=== PATIENT | female | born 1990 | race Caucasian/White ===

== ENCOUNTER → 2016-07-31 | Outpatient (CLI) | payer OTHER ==
[~2016-07-31] MED LIST: MTR600X PO; NITR-5 PO; ONDA4TAB10 SL; PEDICHW44; PEDICHW53 PO; VALA500T60 PO
== END | disposition home or self-care (01) ==
LOC: C.LAB 11:26
PROVIDERS: ATTEND Emergency Medicine
DX: A04.7 Enterocolitis due to Clostridium difficile (principal)

== ENCOUNTER 2016-10-15 17:41 | Outpatient (CLI) | payer OTHER ==
[~2016-10-15] VITALS: Ht 160 cm; Wt 82.7 kg
[~2016-10-15 17:41] MED LIST changes: -MTR600X PO; -NITR-5 PO; -PEDICHW44; -VALA500T60 PO
[2016-10-15] MEDS ORDERED: LACTATED RINGER'S 1000ML 1,000 ML IV SCH (18:15)
[2016-10-15] MEDS ORDERED: LACTATED RINGER'S 1000ML 500 ML IV ONE (18:15)
[2016-10-15 18:54] VITALS: Ht 160 cm; Wt 82.7 kg
--- NOTE | 2016-10-15 19:13 | DIAGNOSTIC IMAGING REPORT ---
Limited ultrasound LIMITED (US) CLINICAL HISTORY: please evaluate cervical length recurrent miscarriage TECHNIQUE: Ultrasound COMPARISON STUDY: None FINDINGS: Single, viable intrauterine . Gestational age is estimated at 19 weeks 4 days. Posterior placenta. Placenta is low-lying. position is variable. heart rate 1 44 bpm. Maternal cervix 6 cm. IMPRESSION: 1. Single, viable intrauterine .. 2. Low-lying posterior placenta 3. Maternal cervix 6 cm. Electronically signed by: Deo Garza M.D. 10/15/2016 7:12 PM Dictated Date/Time: 10/15/2016 7:11 PM
[2016-10-15 19:30] LABS: BASO % 0.3 %; BASO ABS # 0.03 K/uL (0-0.2); COMPLETE YES; EOS % 1.7 %; HEMATOCRIT 32.4 % (37-47); IG% 0.9 %; LYMPH % 26.9 %; LYMPH ABS # 3.09 K/uL (1.2-3.4); MEAN CELL VOLUME 90.8 fL (80-100); MEAN CORPUSCULAR HEMOGLOBIN 33.1 pg (25-34); MEAN CORPUSCULAR HGB CONC 36.4 g/dl (32-36); MEAN PLATELET VOLUME 9.4 fL (7.4-10.4); NEUT % 63.2 %; PLATELET COUNT 212 K/uL (130-400); RED BLOOD COUNT 3.57 M/uL (4.2-5.4); WHITE BLOOD COUNT 11.48 K/uL (4.8-10.8)
[2016-10-15 19:44] LABS: URINE APPEARANCE CLEAR (CLEAR); URINE BILIRUBIN NEG (NEG); URINE COLOR YELLOW; URINE EPITHELIAL CELL AUTO >30 /lpf (0-5); URINE NITRITE NEG (NEG); URINE SPECIFIC GRAVITY 1.015 (1.000-1.030); UROBILINOGEN NEG (NEG); ZZUR CULT IF INDIC CLEAN CATCH NO
[2016-10-15] MEDS ORDERED: IV FLUIDS COMPLETED PRN (19:45)
[2016-10-15 19:49] LABS: MANUAL MICROSCOPIC REQUIRED? NO; REVIEW REQ? NO
--- NOTE | 2016-10-15 20:13 | Progress Note ---
Progress Note Date of Service Oct 15, 2016. Progress Note h&P dictated
--- NOTE | 2016-10-15 20:15 | Discharge Instructions ---
Discharge Instructions Date of Service Oct 15, 2016. Admission Reason for Admission: Cramping Discharge Discharge Diagnosis / Problem: cramping at 19 weeks Discharge Goals Goal(s): Continuing OB care Activity Recommendations Activity Limitations: as noted below ACTIVITY RECOMMENDATIONS: See Labor Sheet. SPECIAL CARE INSTRUCTIONS: Call Doctor if: * Regular contractions every 5 minutes or greater than contractions in one hour. * Bleeding * Water breaks or is leaking * Decreased movement * Fever >100.4 degrees F * Pain not relieved by routine measures or pain medication ordered. FOLLOW UP VISIT: Return to Labor and Delivery on for /call for appointment time . Follow-up Visit with: When: . Current Hospital Diet Patient's current hospital diet: Discharge Diet Recommended Diet: Regular Diet Pending Studies Studies pending at discharge: no Medical Emergencies . Who to Call and When: Medical Emergencies: If at any time you feel your situation is an emergency, please call 911 immediately. . Non-Emergent Contact Non-Emergency issues call your: Specialist . . "Provider Documentation" section prepared by Song Van. VTE Core Measure Inpt VTE Proph given/why not?: Treatment not indicated
--- NOTE | 2016-10-15 20:53 | HISTORY & PHYSICAL EXAMINATION ---
DATE OF ADMISSION: 10/15/2016 HISTORY OF PRESENT ILLNESS: This is a 26-year-old G5, P1 at 19 weeks' gestation who presented to labor and delivery with complaints of abdominal cramping. She denies any nausea, vomiting, shortness of breath or bloody show. The patient has history of 4 miscarriages and obviously was very concerned. On arrival to labor and delivery, she was evaluated and sent for an ultrasound. Ultrasound showed cervical length of 6.0. No funneling is present. CBC and urine have all been normal. COURSE: Has been unremarkable. PAST MEDICAL HISTORY: History of diarrhea, gastroparesis and migraines. PAST SURGICAL HISTORY: History of tonsillectomy, nasal surgery as well as dental surgery. ALLERGIES: THE PATIENT IS ALLERGIC TO REGLAN. SOCIAL HISTORY: The patient is a smoker. Denies drug or alcohol use. FAMILY HISTORY: Noncontributory. OBSTETRICAL AND GYNECOLOGICAL HISTORY: The patient has had 3 spontaneous ABs as well as 1 full term vaginal delivery and spontaneous abortions were less than 10 weeks. PHYSICAL EXAMINATION: GENERAL: Well-developed, well-nourished white female in no acute distress. HEART: S1, S2, regular rhythm and rate. LUNGS: Clear to auscultation bilaterally. ABDOMEN: Nontender, nondistended. PELVIC: Done with a speculum, no digital exam was done because ultrasound showed low lying placenta. She, however, has denied any bleeding. EXTREMITIES: No cyanosis, clubbing or edema. ASSESSMENT AND PLAN: A 26-year-old G5, P1 at 19 weeks gestation, history of recurrent miscarriages, seen today for cramping. Ultrasound showed cervical length of 6.0 as well as low lying placenta. I have given the patient instructions about low lying placenta including but not limited to no intercourse, nothing by vagina. The patient knows to call if she has any vaginal bleeding. CBC, urine and an ultrasound have all been unremarkable. I have discussed my findings with patient and the patient was discharged home in stable condition. REINA
[2017-03-05] MEDS ORDERED: NITR-5 PO (14:10)
[2017-03-12] MEDS ORDERED: MTR600X PO (10:09)
== END 2016-10-15 20:30 | disposition home or self-care (01) ==
LOC: C.OPB 17:41 → C.LD 17:41 → C.OPB 20:30
PROVIDERS: ATTEND Obstetrics & Gynecology
DX: O99.89 Other specified diseases and conditions complicating pregnancy, childbirth and the puerperium (principal); R10.9 Unspecified abdominal pain; O99.332 Smoking (tobacco) complicating pregnancy, second trimester; F17.200 Nicotine dependence, unspecified, uncomplicated; Z3A.19 19 weeks gestation of pregnancy

== ENCOUNTER 2017-01-30 14:41 | Outpatient (CLI) | payer OTHER ==
[~2017-01-30] VITALS: Ht 160 cm; Wt 87.7 kg
[~2017-01-30 14:41] MED LIST changes: -ONDA4TAB10 SL
[2017-01-30 14:56] VITALS: Ht 160 cm; Wt 87.7 kg
[2017-01-30 16:19] LABS: URINE APPEARANCE CLEAR (CLEAR); URINE BILIRUBIN NEG (NEG); URINE COLOR DK YELLOW; URINE EPITHELIAL CELL AUTO >30 /lpf (0-5); URINE NITRITE NEG (NEG); URINE SPECIFIC GRAVITY 1.026 (1.000-1.030); UROBILINOGEN NEG (NEG); ZZUR CULT IF INDIC CLEAN CATCH NO
[2017-01-30 16:20] LABS: MANUAL MICROSCOPIC REQUIRED? NO; REVIEW REQ? NO
--- NOTE | 2017-01-30 16:51 | Progress Note ---
Progress Note Date of Service Jan 30, 2017. Progress Note 26yo @ 34 weeks seen for PTL FHr; CAT1 Ctx ; None VE; cl/thick/post oral hydration d/c home w/instructions
--- NOTE | 2017-01-30 16:53 | Discharge Instructions ---
Discharge Instructions Date of Service Jan 30, 2017. Admission Reason for Admission: Check Pre Term Labor Discharge Discharge Diagnosis / Problem: labor Discharge Goals Goal(s): Continuing OB care Activity Recommendations Activity Limitations: resume your previous activity ACTIVITY RECOMMENDATIONS: See Labor Sheet. SPECIAL CARE INSTRUCTIONS: Call Doctor if: * Regular contractions every 5 minutes or greater than contractions in one hour. * Bleeding * Water breaks or is leaking * Decreased movement * Fever >100.4 degrees F * Pain not relieved by routine measures or pain medication ordered. FOLLOW UP VISIT: Return to Labor and Delivery on for /call for appointment time . Follow-up Visit with: When: . Current Hospital Diet Patient's current hospital diet: Discharge Diet Recommended Diet: Regular Diet Pending Studies Studies pending at discharge: no Medical Emergencies . Who to Call and When: Medical Emergencies: If at any time you feel your situation is an emergency, please call 911 immediately. . Non-Emergent Contact Non-Emergency issues call your: Specialist . . "Provider Documentation" section prepared by Song Van. . VTE Core Measure Inpt VTE Proph given/why not?: Treatment not indicated
[2017-03-05] MEDS ORDERED: NITR-5 PO (14:10)
[2017-03-12] MEDS ORDERED: MTR600X PO (10:09)
== END 2017-01-30 16:57 | disposition home or self-care (01) ==
LOC: C.OPB 14:41 → C.LD 14:42 → C.OPB 16:57
PROVIDERS: ATTEND Obstetrics & Gynecology
DX: O60.03 Preterm labor without delivery, third trimester (principal); Z3A.34 34 weeks gestation of pregnancy

== ENCOUNTER 2017-02-20 17:47 | Outpatient (CLI) | payer OTHER ==
[~2017-02-20] VITALS: Ht 160 cm; Wt 89.1 kg
[2017-02-20] MEDS ORDERED: VALA500T60 PO (18:29)
[2017-02-20] MEDS ORDERED: PEDICHW44 (18:30)
[2017-02-20 18:32] VITALS: Ht 160 cm; Wt 89.1 kg
--- NOTE | 2017-02-27 12:33 | EDITING REQUIRED CODING QUERY ---
DIAGNOSIS NEEDED To promote full compliance with coding requirements relating to patient care, physician participation is requested in all cases of project management director uncertainty. Please assist us with the question(s) below: Coding Question: The patient received care in labor and delivery on 02/20/17 as noted within the record. Please document the diagnosis that is being addressed by the medication/treatment. Provider Response: DIAGNOSIS: Contractions, Rule out labor Thank you for your assistance, Sujey Burr - Wool Broker
[2017-03-12] MEDS ORDERED: MTR600X PO (10:09)
== END 2017-02-20 19:45 | disposition home or self-care (01) ==
LOC: C.OPB 17:47 → C.LD 17:47 → C.OPB 19:45
PROVIDERS: ATTEND Obstetrics & Gynecology
DX: O62.9 Abnormality of forces of labor, unspecified (principal); Z3A.37 37 weeks gestation of pregnancy

== ENCOUNTER 2017-03-04 10:11 | Observation (INO) | payer OTHER ==
[~2017-03-04] VITALS: Ht 160 cm; Wt 87.3 kg
[~2017-03-04 10:11] MED LIST changes: +PEDICHW44; -PEDICHW53 PO; +VALA500T60 PO
[2017-03-04] MEDS ORDERED: LACTATED RINGER'S 1000ML 500 ML IV ONE (10:33)
[2017-03-04] MEDS ORDERED: MoRPHine SULFATE 4 MG/ML 1 ML CARP\\VIAL IV PRN (10:45)
[2017-03-04] MEDS ORDERED: ONDANSETRON INJ 2 MG/ML 2 ML VIAL IV PRN (10:45)
[2017-03-04] MEDS ORDERED: ACETAMINOPHEN 325 MG TAB PO PRN (10:45)
[2017-03-04 10:55] LABS: URINE APPEARANCE TURBID (CLEAR); URINE BILIRUBIN NEG (NEG); URINE COLOR YELLOW; URINE EPITHELIAL CELL AUTO >30 /lpf (0-5); URINE NITRITE POS (NEG); URINE PH 6.5 (4.5-7.5); URINE SPECIFIC GRAVITY 1.017 (1.000-1.030); UROBILINOGEN NEG (NEG); ZZUR CULT IF INDIC CLEAN CATCH YES
[2017-03-04 10:56] LABS: MANUAL MICROSCOPIC REQUIRED? NO; REVIEW REQ? YES
[2017-03-04 11:06] LABS: BASO % 0.1 %; BASO ABS # 0.02 K/uL (0-0.2); COMPLETE YES; EOS % 0.3 %; HEMATOCRIT 36.9 % (37-47); IG% 0.4 %; LYMPH % 9.2 %; LYMPH ABS # 1.58 K/uL (1.2-3.4); MEAN CELL VOLUME 94.4 fL (80-100); MEAN PLATELET VOLUME 10.5 fL (7.4-10.4); PLATELET COUNT 183 K/uL (130-400); RED BLOOD COUNT 3.91 M/uL (4.2-5.4); WHITE BLOOD COUNT 17.12 K/uL (4.8-10.8)
[2017-03-04] MEDS: ACETAMINOPHEN IV 650 MG in EMPTY BAG 0 ML IV PRN ×2 (11:09→21:05)
[2017-03-04 11:42] LABS: ALT/SGPT 16 U/L (12-78); BLOOD UREA NITROGEN 10 mg/dl (7-18); BUN/CREATININE RATIO 16.1 (10-20); CARBON DIOXIDE 22 mmol/L (21-32); CHLORIDE 106 mmol/L (98-107); CREATININE 0.62 mg/dl (0.60-1.20); GLUCOSE 85 mg/dl (70-99); SODIUM 136 mmol/L (136-145)
[2017-03-04 11:45] LABS: ALB/GLOB RATIO 0.7 (0.9-2); ALKALINE PHOSPHATASE 128 U/L (45-117); AST/SGOT 14 U/L (15-37)
[2017-03-04] MEDS: LACTATED RINGER'S 1000ML 1,000 ML IV SCH ×3 (12:06→21:28)
[2017-03-04] MEDS: CEFTRIAXONE SOD INJ 1 GM in DEXTROSE 5% ADD-VANTAGE 50ML 50 ML IV SCH (12:33)
[2017-03-04 13:23] VITALS: BMI 34.1
--- NOTE | 2017-03-04 13:44 | DIAGNOSTIC IMAGING REPORT ---
ULTRASOUND KIDNEYS AND BLADDER CLINICAL HISTORY: Right flank pain. COMPARISON STUDY: No priors. TECHNIQUE: Real-time, grayscale, and color flow sonography of the kidneys and bladder is performed. Images are reviewed in the transverse and longitudinal planes. FINDINGS: Kidneys: The kidneys are normal in size and echotexture. The right kidney measures 12.3 cm in length and the left kidney measures 12.3 cm in length. There mild bilateral no hydronephrosis. No shadowing renal calculi are identified. There is no sonographic evidence of contour deforming renal mass lesion. No perinephric fluid is identified. Bladder: The bladder is partially decompressed. Ureteral jets were not seen. Intraluminal debris is suspected. IMPRESSION: 1. There is mild bilateral hydronephrosis, possibly related to mass effect from the gravid uterus. 2. The bladder was partially decompressed. Intraluminal debris is suggested. Correlation with urinalysis will be required. Electronically signed by: Ariel Childs M.D. 03/04/2017 1:42 PM Dictated Date/Time: 03/04/2017 1:41 PM
[2017-03-04] MEDS ORDERED: NURSING VERBAL MED ORDER ONE (14:45)
[2017-03-04] MEDS ORDERED: ACETAMINOPHEN IV 650 MG / 65ML IV ONE (15:00)
[2017-03-04 22:30] VITALS: BP 116/77; PULSE 72; TEMP 36.6; O2SAT 97
[2017-03-04 23:18] VITALS: BP 113/71; PULSE 83; TEMP 36.6; O2SAT 96
[2017-03-04 23:45] VITALS: Ht 160 cm; Wt 87.3 kg
[2017-03-05] MEDS ORDERED: NURSING VERBAL MED ORDER ONE (01:00)
[2017-03-05] MEDS ORDERED: NICOTINE 7 MG/24 HR TDSY EXT SCH (01:00)
[2017-03-05] MEDS ORDERED: IV FLUIDS COMPLETED PRN (01:45)
[2017-03-05 04:05] VITALS: BP 114/69; PULSE 82; TEMP 36.6; O2SAT 96
[2017-03-05] MEDS: LACTATED RINGER'S 1000ML 1,000 ML IV SCH (04:21)
[2017-03-05 06:49] LABS: BASO % 0.1 %; BASO ABS # 0.01 K/uL (0-0.2); COMPLETE YES; HEMATOCRIT 34.7 % (37-47); IG% 0.4 %; LYMPH % 26.3 %; LYMPH ABS # 2.68 K/uL (1.2-3.4); MEAN CELL VOLUME 95.9 fL (80-100); MEAN CORPUSCULAR HGB CONC 33.4 g/dl (32-36); MEAN PLATELET VOLUME 10.6 fL (7.4-10.4); MONO % 9.4 %; NEUT % 62.8 %; PLATELET COUNT 164 K/uL (130-400); RED BLOOD COUNT 3.62 M/uL (4.2-5.4); WHITE BLOOD COUNT 10.18 K/uL (4.8-10.8)
--- NOTE | 2017-03-05 07:01 | OB/GYN Progress Note ---
HOME COMPANION Progress Note Date of Service: Mar 05, 2017. Patient was transferred to regular bat boy/girl floor from L&D Last night See QS notes for details Has been doing well No complaints Started on Nicotine patch due to symptoms of Nicotine withdrawal ( was smoking 1 /2 to 1 pack a day before admission) Baby is active Last NST: 140's, moderate variability, no decels, not meeting criteria for reactivity Date Time Temp Pulse Resp B/P (MAP) Pulse Ox O2 Delivery O2 Flow Rate FiO2 03/05/17 04:05 36.6 82 16 114/69 (84) 96 Room Air 03/04/17 23:45 Room Air 03/04/17 23:18 36.6 83 16 113/71 (85) 96 Room Air 03/04/17 23:18 Room Air 03/04/17 22:30 36.6 72 18 116/77 (90) 97 Room Air Last 24 Hours Test 03/04/17 10:32 03/04/17 10:55 03/05/17 06:26 Urine Color YELLOW Urine Appearance TURBID Urine pH 6.5 Urine Specific [place] 1.017 Urine Protein 3+ Urine Glucose (UA) NEG Urine Ketones NEG Urine Occult Blood 3+ Urine Nitrite POS Urine Bilirubin NEG Urine Urobilinogen NEG Urine Leukocyte Esterase LARGE Urine WBC (Auto) >30 /hpf Urine RBC (Auto) >30 /hpf Urine Hyaline Casts (Auto) /lpf Urine Epithelial Cells (Auto) >30 /lpf Urine Bacteria (Auto) 4+ Urine Pathogenic Casts /lpf White Blood Count 17.12 K/uL 10.18 K/uL Red Blood Count 3.91 M/uL 3.62 M/uL Hemoglobin 13.3 g/dL 11.6 g/dL Hematocrit 36.9 % 34.7 % Mean Corpuscular Volume 94.4 fL 95.9 fL Mean Corpuscular Hemoglobin 34.0 pg 32.0 pg Mean Corpuscular Hemoglobin Concent 36.0 g/dl 33.4 g/dl Platelet Count 183 K/uL 164 K/uL Mean Platelet Volume 10.5 fL 10.6 fL Neutrophils (%) (Auto) 84.0 % 62.8 % Lymphocytes (%) (Auto) 9.2 % 26.3 % Monocytes (%) (Auto) 6.0 % 9.4 % Eosinophils (%) (Auto) 0.3 % 1.0 % Basophils (%) (Auto) 0.1 % 0.1 % Neutrophils # (Auto) 14.37 K/uL 6.39 K/uL Lymphocytes # (Auto) 1.58 K/uL 2.68 K/uL Monocytes # (Auto) 1.03 K/uL 0.96 K/uL Eosinophils # (Auto) 0.05 K/uL 0.10 K/uL Basophils # (Auto) 0.02 K/uL 0.01 K/uL RDW Standard Deviation 45.6 fL 46.2 fL RDW Coefficient of Variation 13.3 % 13.5 % Immature Granulocyte % (Auto) 0.4 % 0.4 % Immature Granulocyte # (Auto) 0.07 K/uL 0.04 K/uL Sodium Level 136 mmol/L Potassium Level 4.0 mmol/L Chloride Level 106 mmol/L Carbon Dioxide Level 22 mmol/L Anion Gap 8.0 mmol/L Blood Urea Nitrogen 10 mg/dl Creatinine 0.62 mg/dl Estimated GFR () 143.2 Estimated GFR (Non- 123.6 BUN/Creatinine Ratio 16.1 Random Glucose 85 mg/dl Calcium Level 9.0 mg/dl Total Bilirubin 0.3 mg/dl Aspartate Amino Transf (AST/SGOT) 14 U/L Alanine Aminotransferase (ALT/SGPT) 16 U/L Alkaline Phosphatase 128 U/L Total Protein 6.4 gm/dl Albumin 2.7 gm/dl Globulin 3.7 gm/dl Albumin/Globulin Ratio 0.7 AP: 26 yo at 38.6 wks, admitted for Acute right flank pain, UTI, elevated WBCC, HD#2 VSS Afebrile, significantly improved On IV Rocephin WBCC normal Urine cx pending Plan BPP, continue to monitor, anticipate D/C this afternoon
[2017-03-05 08:05] VITALS: BP 124/80; PULSE 71; TEMP 36.5; O2SAT 97
--- NOTE | 2017-03-05 08:07 | DIAGNOSTIC IMAGING REPORT ---
ADDENDUM Movement: 3 or more discrete body or limb movements observed (2/2). Breathing: One or more episodes of breathing lasting 30 seconds observed (2/2). tone: One or more episodes of active extension and flexion of extremity or opening and closing of the hand observed (2/2). Ultrasound portion of the biophysical profile: 02/26 Electronically signed by: Eyad Benitez M.D. 03/05/2017 9:48 AM Dictated Date/Time: 03/05/2017 9:45 AM ORIGINAL REPORT BIO PROF W/O NST-SINGLE CLINICAL HISTORY: 26 years-old Female presenting with NONREACTIVE NST, estimated date of delivery 03/13/2017 (38 weeks 6 days). TECHNIQUE: Real-time grayscale ultrasound imaging of the fetus was performed for a focal biophysical profile examination. COMPARISON: Ultrasound from 10/15/2016. FINDINGS: Single live intrauterine . vertex presentation. Right posterior fundal placental implantation. heart rate: 135 bpm, which is normal. Femur length: 7.3 cm for estimated gestational age 37 weeks 1 day. Amniotic fluid index: 10.2 cm, which is normal. Cervix long and closed measuring 4 cm. IMPRESSION: 1. Normal biophysical profile of the third trimester fetus by ultrasound as above. Electronically signed by: Eyad Benitez M.D. 03/05/2017 8:06 AM Dictated Date/Time: 03/05/2017 8:00 AM
[2017-03-05] MEDS: ACETAMINOPHEN IV 650 MG in EMPTY BAG 0 ML IV PRN (08:40)
[2017-03-05] MEDS: CEFTRIAXONE SOD INJ 1 GM in DEXTROSE 5% ADD-VANTAGE 50ML 50 ML IV SCH (11:35)
[2017-03-05 11:45] VITALS: BP 128/78; PULSE 69; TEMP 36.5; O2SAT 97
--- NOTE | 2017-03-05 14:09 | Progress Note ---
Progress Note Date of Service Mar 05, 2017. Progress Note S; Pt doing well Reports feeling much better Pegnancy at 38 + weeks UTI ; Tx w/ Rocephin and improving O; VSS Lung CTA bilt Ht; S1S2 R/R/R Abd; NT ND +BS Ext; No C/C/E A/p at 38 + weeks UTI- Tx Rocephin x 24hrs Urine culx are +ve E.coli Smoker; 1PPD NST and BPP done 02/26 [facility] for repeat NST in office on 03/08/17 D/c home on Macrobid
[2017-03-05] MEDS ORDERED: NITR-5 PO (14:10)
--- NOTE | 2017-03-05 14:12 | Discharge Instructions ---
Discharge Instructions Date of Service Mar 05, 2017. Admission Reason for Admission: Check Labor, Uti Discharge Discharge Diagnosis / Problem: UTI in Discharge Goals Goal(s): Continuing OB care Activity Recommendations Activity Limitations: as noted below SPECIAL CARE INSTRUCTIONS: Call Doctor if: * Regular contractions every 5 minutes or greater than contractions in one hour. * Bleeding * Water breaks or is leaking * Decreased movement * Fever >100.4 degrees F * Pain not relieved by routine measures or pain medication ordered. FOLLOW UP VISIT: Return to Labor and Delivery on for /call for appointment time . Follow-up Visit with: When: . Current Hospital Diet Patient's current hospital diet: Regular OB Diet Discharge Diet Recommended Diet: Regular Diet Pending Studies Studies pending at discharge: no Medical Emergencies . Who to Call and When: Medical Emergencies: If at any time you feel your situation is an emergency, please call 911 immediately. . Non-Emergent Contact Non-Emergency issues call your: Specialist . . "Provider Documentation" section prepared by Song Van. . VTE Core Measure Inpt VTE Proph given/why not?: Treatment not indicated
[2017-03-05 14:45] VITALS: BP 128/78; PULSE 69; TEMP 36.5; O2SAT 97
[2017-03-12] MEDS ORDERED: MTR600X PO (10:09)
--- NOTE | 2017-03-20 18:05 | DISCHARGE SUMMARY ---
HISTORY OF PRESENT ILLNESS: This is a 26-year-old G6, P1 who was admitted to [facility] on 03/04/2017 for right flank pain with urinary infection. The patient was 38 weeks . She was started on antibiotics for 24 hours. Urine culture showed E. coli. The patient did well with antibiotic therapy and was discharged home on 03/05/2017 in stable condition. PAST MEDICAL HISTORY: The patient has history of acne, gastroparesis, migraines, and PCOS. PAST SURGICAL HISTORY: The patient has a history of tonsillectomy and adenoids removal and foot surgery. SOCIAL HISTORY: The patient is a smoker. Denies drug and alcohol use. FAMILY HISTORY: Noncontributory. ALLERGIES: No known drug allergies. PHYSICAL EXAMINATION: VITAL SIGNS: On 03/05/2017 showed temperature 36.5, pulse of 69, respiration of 18, blood pressure of 97. LABORATORY DATA: On 03/05/2017 showed WBC of 10.8, hemoglobin of 11.6, hematocrit of 34.7, platelets of 154,000. HEART: S1, S2, regular rhythm and rate. LUNGS: Clear to auscultation bilaterally. ABDOMEN: Nontender, nondistended. EXTREMITIES: No cyanosis, clubbing or edema. heart rate tracing was category 1. OPERATION: None. DISCHARGE DIAGNOSIS: complicated by urinary tract infection in third trimester. PLAN ON DISCHARGE: The patient is discharged home with instructions regarding activity, diet, followup appointment and medications.
== END 2017-03-05 14:45 | disposition home or self-care (01) ==
LOC: C.LD 10:11 → C.OPB 10:11 → C.MS4N 21:57 → C.OPB 22:42 → C.MS4N 22:42
PROVIDERS: ADMIT Obstetrics & Gynecology; ATTEND Obstetrics & Gynecology
DX: O23.43 Unspecified infection of urinary tract in pregnancy, third trimester (principal); Z3A.38 38 weeks gestation of pregnancy; O99.333 Smoking (tobacco) complicating pregnancy, third trimester; F17.200 Nicotine dependence, unspecified, uncomplicated; Z22.330 Carrier of Group B streptococcus

== ENCOUNTER 2017-03-10 14:55 | Inpatient (IN) | payer OTHER ==
[~2017-03-10] VITALS: Ht 160 cm; Wt 87.3 kg
[~2017-03-10 14:55] MED LIST changes: +NITR-5 PO
[2017-03-10] MEDS ORDERED: LACTATED RINGER'S 1000ML 1,000 ML IV PRN (15:11)
[2017-03-10] MEDS ORDERED: LACTATED RINGER'S 1000ML 1,000 ML IV SCH (15:11)
[2017-03-10] MEDS ORDERED: PENICILLIN G POTASSIUM IV 3 MU in DEXTROSE 5% 100ML 100 ML IV PRN (15:15)
[2017-03-10] MEDS ORDERED: OXYTOCIN 30 UNITS/500ML NSS IV ONE (15:21)
[2017-03-10] MEDS ORDERED: PENICILLIN G POTASSIUM IV 6 MU in DEXTROSE 5% 250ML 250 ML IV ONE (15:30)
[2017-03-10 15:35] LABS: HEMATOCRIT 38.3 % (37-47); MEAN CELL VOLUME 93.9 fL (80-100); MEAN CORPUSCULAR HEMOGLOBIN 34.1 pg (25-34); MEAN PLATELET VOLUME 10.5 fL (7.4-10.4); PLATELET COUNT 190 K/uL (130-400); RED BLOOD COUNT 4.08 M/uL (4.2-5.4); WHITE BLOOD COUNT 12.07 K/uL (4.8-10.8)
[2017-03-10] MEDS ORDERED: ACETAMINOPHEN 325 MG TAB PO PRN (16:00)
[2017-03-10] MEDS ORDERED: OXYTOCIN 30 UNITS/500ML NSS IV PRN (16:00)
[2017-03-10] MEDS ORDERED: HYDROCORTISONE ACETATE 25 MG SUPP PR PRN (16:00)
[2017-03-10] MEDS ORDERED: SUPERCREAM 0.870 % 15GM JAR EXT PRN (16:00)
[2017-03-10] MEDS ORDERED: BENZOCAINE 20% AER SPR 82.5 GM CAN EXT PRN (16:00)
[2017-03-10] MEDS ORDERED: LANOLIN OINT EXT PRN ×2 (16:00)
--- NOTE | 2017-03-10 16:01 | Vaginal Delivery Summary ---
Vaginal Delivery Summary Delivery Note Patient presented to labor delivery at 8 cm and progressed to fully dilated and ruptured spontaneously with light meconium stained fluid. She delivered precipitously with a spontaneousl normal vaginal delivery of a live female over an intact perineum. Apgars 8/9 with delayed cord clamping and then cord blood was obtained. Placenta delivered spontaneously and intact. No tears. EBL 300 ml. Final sponge and instrument count are correct. Mom and baby stable.
[2017-03-10 16:03] LABS: MEAN CORPUSCULAR HGB CONC 36.3 g/dl (32-36)
[2017-03-10 16:46] VITALS: Ht 160 cm; Wt 87.3 kg
[2017-03-10] MEDS: LACTATED RINGER'S 1000ML 1,000 ML IV SCH ×2 (16:54→17:37)
[2017-03-10] MEDS ORDERED: NURSING VERBAL MED ORDER ONE ×3 (17:30→23:15)
[2017-03-10] MEDS: IBUPROFEN 600 MG TAB PO PRN (17:38)
[2017-03-10 19:15] VITALS: BP 120/71; PULSE 83; TEMP 36.9; O2SAT 96
[2017-03-10] MEDS: NITROFURANTOIN MONOHYDRATE 100 MG CAP PO SCH (19:54)
[2017-03-10] MEDS ORDERED: NICOTINE 21 MG/24 HR TDSY TD STA (23:15)
[2017-03-10 23:40] VITALS: BP 117/71; PULSE 74; TEMP 36.9; O2SAT 98
[2017-03-11 04:00] VITALS: BP 126/83; PULSE 84; TEMP 37; O2SAT 95
[2017-03-11 06:24] LABS: HEMATOCRIT 34.1 % (37-47)
[2017-03-11] MEDS: IBUPROFEN 600 MG TAB PO PRN ×2 (07:26→23:18)
[2017-03-11] MEDS: NITROFURANTOIN MONOHYDRATE 100 MG CAP PO SCH ×2 (07:27→20:43)
[2017-03-11] MEDS: FERROUS SULFATE 325 MG TAB PO SCH (07:27)
[2017-03-11] MEDS: DOCUSATE SODIUM 100 MG CAP PO SCH ×2 (07:28→20:00)
[2017-03-11] MEDS: PRENATAL VITAMIN TAB PO SCH (07:28)
[2017-03-11] MEDS: NICOTINE 21 MG/24 HR TDSY TD SCH (07:30)
[2017-03-11 07:40] VITALS: BP 118/79; PULSE 88; TEMP 36.6; O2SAT 97
--- NOTE | 2017-03-11 08:31 | OB/GYN Progress Note ---
EVENTS SPECIALIST Progress Note Date of Service: Mar 11, 2017. Patient is seen and examined. She feels well, no complaints. Ambulating without dizziness Voiding without difficulty Tolerating regular diet with out N&V Bleeding is minimal No fever/ chills/ CP/ SOB/ N&V/ Leg pain Date Time Temp Pulse Resp B/P (MAP) Pulse Ox O2 Delivery O2 Flow Rate FiO2 03/11/17 04:00 37.0 84 16 126/83 (97) 95 Room Air 03/10/17 23:40 98 Room Air 03/10/17 23:40 36.9 74 18 117/71 (86) 98 Room Air 03/10/17 19:15 36.9 83 20 120/71 (87) 96 Room Air Last 24 Hours Test 03/10/17 15:27 03/11/17 06:07 White Blood Count 12.07 K/uL Red Blood Count 4.08 M/uL Hemoglobin 13.9 g/dL 11.8 g/dL Hematocrit 38.3 % 34.1 % Mean Corpuscular Volume 93.9 fL Mean Corpuscular Hemoglobin 34.1 pg Mean Corpuscular Hemoglobin Concent 36.3 g/dl RDW Standard Deviation 45.3 fL RDW Coefficient of Variation 13.3 % Platelet Count 190 K/uL Mean Platelet Volume 10.5 fL PE: General: Alert, orientedx3, NAD Abd: soft, NT, fundus firm, below Umbilicus Perineum intact, Lochia rubra minimal Ext; NT, no edema AP: 26 yo s/p , ppd# 1 VSS Afebrile doing well Continue routine care All questions were answered D/C home tomorrow
[2017-03-11] MEDS ORDERED: DIPHTHERIA/TETANUS/PERTUSSIS 0.5 ML SYR/VIAL IM. ONE (09:00)
[2017-03-11] MEDS ORDERED: MEASLES, MUMPS & RUBELLA VIRUS VIAL SQ. ONE (09:00)
[2017-03-11 12:20] VITALS: BP 128/80; PULSE 84; TEMP 36.8
[2017-03-11 15:50] VITALS: BP 127/78; PULSE 89; TEMP 36.8
[2017-03-11] MEDS ORDERED: BISACODYL 5 MG TABEC PO SCH (20:00)
[2017-03-11 23:15] VITALS: BP 134/82; PULSE 96; TEMP 37
[2017-03-12] MEDS ORDERED: BISACODYL 10 MG SUPP PR PRN (07:00)
[2017-03-12 08:40] VITALS: BP 127/82; PULSE 96; TEMP 36.5; O2SAT 97; O2SAT 98
[2017-03-12] MEDS: NICOTINE 21 MG/24 HR TDSY TD SCH (08:44)
[2017-03-12] MEDS: PRENATAL VITAMIN TAB PO SCH (08:44)
[2017-03-12] MEDS: FERROUS SULFATE 325 MG TAB PO SCH (08:44)
[2017-03-12] MEDS: NITROFURANTOIN MONOHYDRATE 100 MG CAP PO SCH (08:44)
[2017-03-12] MEDS: DOCUSATE SODIUM 100 MG CAP PO SCH (08:46)
[2017-03-12] MEDS ORDERED: MTR600X PO (10:09)
--- NOTE | 2017-03-12 10:12 | Discharge Instructions ---
Discharge Instructions Date of Service Mar 12, 2017. Admission Reason for Admission: Check Labor Discharge Discharge Diagnosis / Problem: term delivered Discharge Goals Goal(s): Routine recovery after delivery Activity Recommendations Activity Limitations: as noted below Lifting Limitations: no more than 10 pounds, gradually increase as tolerated Exercise/Sports Limitations: gradually increase as tolerated, until after follow-up appointment May Resume Sexual Activity: after follow-up appointment Shower/Bathe: no limitations Driving or Machine Use: resume 3 days after discharge . Instructions / Follow-Up Instructions / Follow-Up ACTIVITY RECOMMENDATIONS: * Gradual return to full activity over the next 2-3 weeks. * No lifting - nothing heavier than baby over the next 2-3 weeks. * Do not engage in vigorous exercise, sexual activity or sports until cleared by your physician. * Do not drive or operate any motorized equipment until cleared by your physician. * You may shower/bathe daily. BREAST CARE: If you are not breast feeding: * Wear a supportive bra 24 hours a day for one to two weeks. * Avoid stimulating your breasts and nipples as much as possible during the first few weeks after delivery. * When taking a shower, have the warm water hit your back, not breasts. * When your breasts feel full, apply ice packs. Usually three to four times a day helps ease the discomfort. * Take a mild pain medication (Tylenol/Motrin) when you are uncomfortable. If breast feeding: * Use breast milk to lubricate nipples. Lansinoh cream may be used for sore nipples. You do not need to remove cream prior to breast feeding. If using a different brand of cream, check the label for directions regarding removal of cream prior to nursing. * Wear a supportive bra. * If having problems with breasts or breast feeding, call a direct response consultant or your health care provider. EPISIOTOMY CARE: After delivery, if you have an episiotomy (stitches), the following steps will ease discomfort and aid healing. * For the first 24 hours after delivery, place ice packs next to your episiotomy to help reduce swelling. * After the first 24 hour-period, sitz baths, either portable or in the tub, are suggested. A shower with a shower arm sprayed over the episiotomy may be comforting. * [place] care should be done after each voiding and bowel movement. Squirt warm water from a plastic bottle over the perineum (region of the body between the anus and urinary opening) and pat dry. * Use Dermoplast to ease discomfort. Shake container. [place] directly over the episiotomy. * Place a Tucks on a clean sanitary pad next to your episiotomy. OVER THE COUNTER MEDICATION: * For discomfort or pain, you may use Acetaminophen (Tylenol), Ibuprofen (Advil ), or Naproxen (Aleve) following the package directions. * For constipation you may use Colace following the package directions. SPECIAL CARE INSTRUCTIONS: When you are discharged from the hospital, it is important for you to follow the instructions listed below: * During the first week at home, you should be able to care for yourself and your baby. In addition, the usual light household activities are encouraged. * Limit your activities to the way you feel. Do not try to clean the house or move furniture. Be sensible. * If you actively engage in sports and have done so up until the time of your delivery, you may resume these activities as soon as you feel able. This may take up to one month or even longer. Use good judgment. * Continue to take your vitamins for at least six weeks after the of your baby. * Your diet need not be limited unless you were on a special diet before your delivery. Breast-feeding mothers need around 2500 calories per day and at least 64-80 ounces of fluid per day (8 to 10 glasses). * You should eat foods from the four major food groups. Crash diets or fad diets are to be avoided. Eating lean meats, fresh fruits and vegetables, low-fat dairy products, high fiber foods and a regular exercise program, will help you get back to your pre- weight without putting your health at risk. * Constipation is sometimes a problem after delivery. Take a mild laxative as needed. If breast feeding, Milk of Magnesia is acceptable to use. You may use a suppository or Fleets enema if no episiotomy. * A daily shower or tub bath is suggested. Be sure to thoroughly and gently dry the perineum. * A bloody vaginal discharge will usually continue until around four weeks post . A small amount of bleeding may continue for as long as six weeks. Vaginal discharge changes from the bright red bleeding after delivery to pink then brownish and finally yellowish-pink before becoming white and disappearing. * Bleeding may increase with activity. Your first period may come in 4-8 weeks. If you are breast feeding, your period may be delayed even longer. * [place] (sex) can begin whenever both you and your partner feel comfortable and do not have any form of genital infection. It is recommended that you wait until after your return appointment and discuss with your physician. If you have questions, please talk to your health care practitioner. A condom should be used to prevent infection and . * Foreplay, gentle intercourse and lubrication is very important the first several times to prevent pain. A water-based lubricant such as K-Y jelly or Astroglide may be used. * Tampons may be used six weeks after delivery. * Douching should be avoided for 6 weeks after delivery. * If you have RH negative blood and your baby is RH positive, you will receive RHOGAM by injection prior to discharge. The nurse will give you a card to keep with you that has the date and place that you received RHOGAM after delivery. * During your care, you had a Rubella screen done to check for the presence of rubella antibodies in your blood. If your test was negative, you will receive a Rubella vaccine prior to discharge. This vaccine may cause a fever, soreness at the injection site and flu-like symptoms. If these symptoms persist, notify your health care practitioner. is not advised for three months after a Rubella vaccine. There is a higher chance of having a baby with defects if conceived within three months of getting the vaccine. * If you were discharged 24 hours from delivery or before 48 hours: Visiting nurses will come to your home 48 hours after discharge to assess you and your baby. The visiting nurse will meet with you while you are in the hospital to arrange a time and get directions to your home. * Verbalizes understanding of car seat law as reviewed with patient nursing. * Car Seat hand-out given and reviewed with patient by nursing. * Shaken baby information reviewed with patient by nursing. Call you doctor if: * Heavy bleeding (saturating several pads an hour) or passing clots the size of your fist. * A fever >101 degrees F (38.3 degrees C) on two occasions four hours apart and/or chills. * Unusual pain in the pelvic or vaginal areas. * "Baby Blues" lasting longer than two weeks. If you have any questions or concerns, call your health care practitioner at . FOLLOW-UP VISIT: * Please call the office at to schedule a 6 week examination. It is important you keep this appointment. * It is important for you to make arrangements for either yearly or twice yearly check-ups thereafter. Current Hospital Diet Patient's current hospital diet: Regular OB Diet Discharge Diet Recommended Diet: Regular OB Diet Fluid Restriction: None Pending Studies Studies pending at discharge: no Medical Emergencies . Who to Call and When: Medical Emergencies: If at any time you feel your situation is an emergency, please call 911 immediately. . Non-Emergent Contact Non-Emergency issues call your: Primary Care Provider . . "Provider Documentation" section prepared by Jr Serrano. . VTE Core Measure Inpt VTE Proph given/why not?: Treatment not indicated
--- NOTE | 2017-03-12 10:31 | OB/GYN Progress Note ---
[facility] Progress Note Date of Service Mar 12, 2017. Subjective conversation w/ patient, physical exam Ambulation: ambulating normally Voiding: no voiding problems Passing Gas: Yes Diet Tolerance: Regular Diet Lochia: Small Objective Vital Signs Date Time Temp Pulse Resp B/P (MAP) Pulse Ox O2 Delivery O2 Flow Rate FiO2 03/12/17 08:40 97 Room Air 03/12/17 08:40 36.5 96 20 127/82 (97) 98 Room Air 03/11/17 23:15 37.0 96 18 134/82 (99) Room Air 03/11/17 23:15 Room Air 03/11/17 15:50 36.8 89 18 127/78 (94) Room Air 03/11/17 15:50 Room Air 03/11/17 12:20 36.8 84 18 128/80 (96) Room Air Physical Exam General Appearance: WELL-APPEARING Abdomen: non tender, soft Fundus: Firm Extremities: non-tender, normal inspection Assessment and Plan Post- Day Number: 2 Continue Routine Care: discharged
[2017-03-12 13:15] VITALS: BP_DIAS 82; PULSE 96; TEMP 36.5
== END 2017-03-12 13:45 | disposition home or self-care (01) | DRG 775 ==
LOC: C.OPB 14:55 → C.LD 14:55 → C.OPB 15:14 → EEVIPCON 15:14 → C.OBG 18:54
PROVIDERS: ADMIT Obstetrics & Gynecology; ATTEND Obstetrics & Gynecology
PROC: 10E0XZZ Delivery of Products of Conception, External Approach (ICD-10-PCS; principal; 2017-03-10)
DX: O77.0 Labor and delivery complicated by meconium in amniotic fluid (principal); Z37.0 Single live birth

== ENCOUNTER 2017-07-18 19:00 | Observation (INO) | payer OTHER ==
[~2017-07-18] VITALS: Ht 160 cm; Wt 79.7 kg
[~2017-07-18 19:00] MED LIST changes: +MTR600X PO; -PEDICHW44; +PEDICHW44 PO
--- NOTE | 2017-07-18 19:46 | EMERGENCY ROOM VISIT NOTE ---
History First contact with patient: 19:16 Chief Complaint: BACK PAIN Stated Complaint: BACK PAIN, LOWER ABD PAIN, VOMITING FEVER History of Present Illness The patient is a 26 year old female with hx of adhd, gastroparesis, UTIs and kidney stones who presents to the Emergency Room with complaints of lower abdominal and back pain x 1 day. Associated with fever, chills, nausea, vomiting , decreased appetite, dizziness, increased urinary frequency, bladder fullness sensation and loss of bladder control. Denies sob, cp, dysuria, hematuria, vaginal discharge/foul odor/spotting or d/c. Reports UTI during and kidney stones (passed a few) about 5 months ago. Taken some Tylenol without much relief this PM. Has not got her cycle after being yet, is , reports being sexually active with fiance and using condoms for protection. Review of Systems see below Constitutional: + fever, + chills Respiratory: No shortness of breath Cardiovascular: No chest pain Abdomen: + pain, + nausea, + vomiting, No diarrhea, No constipation Genitourinary - Female: + urinary frequency, + urinary incontinence, No dysuria, No hematuria, No vaginal bleeding, No vaginal discharge, No vaginal itching Neurologic: + problem reported (dizziness/HOLGUIN) Past Medical/Surgical History Medical Problems: (1) (2) labor in third trimester (3) Right flank pain (4) UTI (urinary tract infection) during (5) UTI (urinary tract infection) with pyuria Social History Smoking Status: Current Every Day Smoker Current/Historical Medications Scheduled Pediatric Multiple Vitamins W/ (Flintstones Plus Iron), 1 TAB PO DAILY Scheduled PRN Acetaminophen (Tylenol), 1,000 MG PO Q6 PRN for Headache or Pain Metoclopramide Hcl (Reglan), 5 MG PO BID PRN for GI Upset Physical Exam Vital Signs Date Time Temp Pulse Resp B/P (MAP) Pulse Ox O2 Delivery O2 Flow Rate FiO2 07/18/17 19:08 36.7 91 18 110/71 96 Room Air Physical Exam see below General Appearance: + mild distress Head: normocephalic, atraumatic Eyes: normal inspection, sclerae normal Respiratory/Chest: lungs clear, normal breath sounds Cardiovascular: regular rate, rhythm, no edema, no murmur Abdomen / GI: normal bowel sounds, soft, + tenderness (LUQ, LLQ, suprapubic) , + pertinent finding (no ) Medical Decision & Procedures Laboratory Results 07/18/17 19:20 Red Blood Count 4.59, Mean Corpuscular Volume 89.1, Mean Corpuscular Hemoglobin 32.5, Mean Corpuscular Hemoglobin Concent 36.4, Mean Platelet Volume 9.0, Neutrophils (%) (Auto) 81.0, Lymphocytes (%) (Auto) 10.7, Monocytes (%) (Auto) 7.1, Eosinophils (%) (Auto) 0.7, Basophils (%) (Auto) 0.2, Neutrophils # (Auto) 10.34, Lymphocytes # (Auto) 1.36, Monocytes # (Auto) 0.90, Eosinophils # (Auto) 0.09, Basophils # (Auto) 0.02 07/18/17 19:20 Test 07/18/17 19:20 07/18/17 20:00 White Blood Count 12.75 K/uL (4.8-10.8) Red Blood Count 4.59 M/uL (4.2-5.4) Hemoglobin 14.9 g/dL (12.0-16.0) Hematocrit 40.9 % (37-47) Mean Corpuscular Volume 89.1 fL (80-100) Mean Corpuscular Hemoglobin 32.5 pg (25-34) Mean Corpuscular Hemoglobin Concent 36.4 g/dl (32-36) Platelet Count 197 K/uL (130-400) Mean Platelet Volume 9.0 fL (7.4-10.4) Neutrophils (%) (Auto) 81.0 % Lymphocytes (%) (Auto) 10.7 % Monocytes (%) (Auto) 7.1 % Eosinophils (%) (Auto) 0.7 % Basophils (%) (Auto) 0.2 % Neutrophils # (Auto) 10.34 K/uL (1.4-6.5) Lymphocytes # (Auto) 1.36 K/uL (1.2-3.4) Monocytes # (Auto) 0.90 K/uL (0.11-0.59) Eosinophils # (Auto) 0.09 K/uL (0-0.5) Basophils # (Auto) 0.02 K/uL (0-0.2) RDW Standard Deviation 39.0 fL (36.4-46.3) RDW Coefficient of Variation 12.1 % (11.5-14.5) Immature Granulocyte % (Auto) 0.3 % Immature Granulocyte # (Auto) 0.04 K/uL (0.00-0.02) Anion Gap 7.0 mmol/L (3-11) Est Creatinine Clear Calc Drug Dose 105.6 ml/min Estimated GFR () 117.1 Estimated GFR (Non- 101.0 BUN/Creatinine Ratio 11.9 (10-20) Calcium Level 9.3 mg/dl (8.5-10.1) Total Bilirubin 2.7 mg/dl (0.2-1) Direct Bilirubin 1.4 mg/dl (0-0.2) Aspartate Amino Transf (AST/SGOT) 261 U/L (15-37) Alanine Aminotransferase (ALT/SGPT) 495 U/L (12-78) Alkaline Phosphatase 171 U/L (45-117) Total Protein 7.7 gm/dl (6.4-8.2) Albumin 3.8 gm/dl (3.4-5.0) Lipase 163 U/L (73-393) Urine Color DK YELLOW Urine Appearance CLEAR (CLEAR) Urine pH 5.5 (4.5-7.5) Urine Specific [place] 1.023 (1.000-1.030) Urine Protein NEG (NEG) Urine Glucose (UA) NEG (NEG) Urine Ketones NEG (NEG) Urine Occult Blood NEG (NEG) Urine Nitrite (NEG) Urine Bilirubin 2+ (NEG) Urine Urobilinogen POS (NEG) Urine Leukocyte Esterase TRACE (NEG) Urine WBC (Auto) 1-5 /hpf (0-5) Urine RBC (Auto) 0-4 /hpf (0-4) Urine Hyaline Casts (Auto) 1-5 /lpf (0-5) Urine Epithelial Cells (Auto) 10-20 /lpf (0-5) Urine Bacteria (Auto) NEG (NEG) Urine Test NEG (NEG) Medications Administered Medications (Trade) Dose Ordered Sig/Evelyn Route Start Time Stop Time Status Last Admin Dose Admin Ondansetron HCl (Zofran Inj) 4 mg NOW STAT IV 07/18/17 19:48 07/18/17 19:51 DC 07/18/17 20:49 4 MG Ketorolac Tromethamine (Toradol Inj) 60 mg NOW STAT IM 07/18/17 19:48 07/18/17 19:51 DC 07/18/17 20:48 60 MG Sodium Chloride 1,000 ml @ 999 mls/hr Q1H1M STAT IV 07/18/17 19:48 07/18/17 20:48 DC 07/18/17 20:49 999 MLS/HR Piperacillin Sod/ Tazobactam Sod (Zosyn Iv) 3.375 gm NOW STAT IV 07/18/17 21:38 07/18/17 21:45 DC 07/18/17 21:53 3.375 GM ED Course -updated patient of abnormal LFT and concern for gallstones on CT at 8:30pm -went to notify pt that she will be admitted for choledocholithiasis but she was not in room at 9:42pm -updated pt that she will be admitted at 10pm Medical Decision 26 yoF with hx of adhd, gastroparesis, UTIs and kidney stones who presents with complaints of fever, lower abdominal and back pain x 1 day concerning for likely UTI vs. kidney stones vs. pyelonephritis vs. appendicitis vs. ectopic -Ordered CT abdomen and pelvis w/ot contrast to evaluate for kidney stones and appendicitis -Circumferential bladder wall thickening concerning for cystitis but UA wnl -gallstones within gallbladder -no acute intraabdominal pathology -Mosaic attenuation at lung bases suggestive of small airway disease -Ordered UA/UCx to evaluate for UTI - negative -Ordered Upreg to consider possibility of ectopic (less likely given lack of vaginal bleeding) - negative -Ordered CBC w/t diff, BMP, LFT and lipase -CBC w/t diff - WBC 12.75 with slight L shift -BMP wnl -LFT abnormal TB:2.7, DB: 1.4, AST 261; ALT 495; alk phos 171 -lipase nl 163 -Ordered gallbladder US -Choledocholithiasis with extrahepatic biliary ductal dilatation, no cholecystitis -Pt received 1L NS bolus, Zofran 4mg IV once for nausea/vomitting and Toradol 60mg IM for pain -Given Zosyn IV 3.375mg once -Called [employer] for inpatient admission request for concerns of transaminitis , hyperbilirubinemia and choledocholithiasis with biliary ductal dilatation -Spoke to Tye Wilson who also recommended speaking to call GI doctor -network operations manager requested to page GI oncall doc -Spoke with GI doc - Dr. Prater about patient Impression Primary Impression: Transaminitis Additional Impressions: Hyperbilirubinemia Choledocholithiasis Departure Information Referrals Mark Tyler M.D. (PCP) Patient Instructions [facility] Problem Qualifiers
[2017-07-18] MEDS ORDERED: KETOROLAC TROMETHAMINE 60 MG/2 ML VIAL IM STA (19:48)
[2017-07-18] MEDS ORDERED: SODIUM CHLORIDE 0.9% 1000ML 1,000 ML IV STA (19:48)
[2017-07-18] MEDS ORDERED: ONDANSETRON INJ 2 MG/ML 2 ML VIAL IV STA (19:48)
[2017-07-18 19:55] LABS: BASO % 0.2 %; BASO ABS # 0.02 K/uL (0-0.2); EOS % 0.7 %; EOS ABS # 0.09 K/uL (0-0.5); HEMATOCRIT 40.9 % (37-47); HEMOGLOBIN 14.9 g/dL (12.0-16.0); IG# 0.04 K/uL (0.00-0.02); LYMPH % 10.7 %; LYMPH ABS # 1.36 K/uL (1.2-3.4); MEAN CELL VOLUME 89.1 fL (80-100); MEAN CORPUSCULAR HEMOGLOBIN 32.5 pg (25-34); MEAN CORPUSCULAR HGB CONC 36.4 g/dl (32-36); MONO % 7.1 %; NEUT ABS # 10.34 K/uL (1.4-6.5); PLATELET COUNT 197 K/uL (130-400); RED CELL DISTRIBUTION WIDTH CV 12.1 % (11.5-14.5); WHITE BLOOD COUNT 12.75 K/uL (4.8-10.8)
--- NOTE | 2017-07-18 20:01 | EMERGENCY ROOM VISIT NOTE ---
History Report prepared by Adrian: Twyla Ruiz Under the Supervision of: Dawn PaganO. First contact with patient: 19:20 Chief Complaint: BACK PAIN Stated Complaint: BACK PAIN, LOWER ABD PAIN, VOMITING FEVER History of Present Illness The patient is a 26 year old female who presents to the Emergency Room with complaints of worsening back pain starting today. The patient states that she had a fever yesterday. She reports that she developed the back pain and the abdominal pain today. She currently rates her pain as an 8/10 in severity. She complains of nausea, vomiting, chills, loss of appetite, urinary frequency, and urinary incontinence. She states that she feels like when she urinates that her bladder never fully empties. The patient denies constipation, vaginal discharge , dysuria, hematuria, chest pain, and shortness of breath. She notes that she had a UTI when she was five months ago and states that she has not gotten her menstrual cycle since she gave four months ago. She notes that she is sexually active, but uses condoms for protection. Source of History: patient Onset: today Position: back Symptom Intensity: 8/10 Timing: worsening Associated Symptoms: + fevers, + chills, + nausea, + vomiting, + abdominal pain, + urinary symptoms, No chest pain, No SOB Note: The patient complains of loss of appetite. The patient denies constipation, vaginal discharge, dysuria, and hematuria. Review of Systems See HPI for pertinent positives & negatives. A total of 10 systems reviewed and were otherwise negative. Past Medical & Surgical Medical Problems: (1) (2) labor in third trimester (3) Right flank pain (4) UTI (urinary tract infection) during (5) UTI (urinary tract infection) with pyuria Family History No pertinent family history Social History Smoking Status: Current Every Day Smoker Marital Status: in relationship Housing Status: lives with family Current/Historical Medications Scheduled Pediatric Multiple Vitamins W/ (Flintstones Plus Iron), 1 TAB PO DAILY Scheduled PRN Acetaminophen (Tylenol), 1,000 MG PO Q6 PRN for Headache or Pain Metoclopramide Hcl (Reglan), 5 MG PO BID PRN for GI Upset Allergies Coded Allergies: BEE STING (Verified Allergy, Severe, ANAPHYLAXIS, 03/10/17) Adhesives (Verified Allergy, Intermediate, RASH, 03/10/17) Latex (Verified Allergy, Intermediate, RASH, 03/10/17) [place] (Verified Allergy, Intermediate, RASH, 03/10/17) [place] Oil (Verified Allergy, Intermediate, HIVES, 03/10/17) Metoclopramide (Verified Adverse Reaction, Intermediate, TREMORS, 03/10/17) Physical Exam Vital Signs Date Time Temp Pulse Resp B/P (MAP) Pulse Ox O2 Delivery O2 Flow Rate FiO2 07/18/17 19:08 36.7 91 18 110/71 96 Room Air Physical Exam CONSTITUTIONAL/VITAL SIGNS: Reviewed / noted above. GENERAL: Non-toxic in appearance. INTEGUMENTARY: Warm, dry, and [place]. HEAD: Normocephalic. EYES: without scleral icterus or trauma. ENT/OROPHARYNX: clear and moist. LYMPHADENOPATHY/NECK: Is supple without lymphadenopathy or meningismus. RESPIRATORY: Lungs clear and equal. CARDIOVASCULAR: Regular rate and rhythm. GI/ABDOMEN: Soft. Suprapubic and right lower quadrant tenderness. Minimal tenderness in the right upper quadrant. No organomegaly or pulsatile mass. No rebound or guarding. Normal bowel sounds. EXTREMITIES: Warm and well perfused. BACK: Mild bilateral CVA tenderness. NEUROLOGICAL: Intact without focal deficits. PSYCHIATRIC: normal affect. MUSCULOSKELETAL: Normally developed with good muscle tone. Medical Decision & Procedures ER Provider Diagnostic Interpretation: Radiology results as stated below per my review and radiologist interpretation: ABD/PELVIS WITHOUT FOR STONE CLINICAL HISTORY: 26 years-old Female presenting with abdominal and back pain . TECHNIQUE: Multidetector CT of the abdomen and pelvis was performed without the use of intravenous contrast. IV contrast: None. A dose lowering technique was used consistent with the principles of ALARA (as low as reasonably achievable). COMPARISON: None. CT DOSE (mGy.cm): The estimated cumulative dose is 1075.89 mGy.cm. FINDINGS: Senior Software Architect topogram: Unremarkable. Lung bases: Mosaic attenuation at the lung bases suggest small airways disease. Normal heart size. No pericardial or pleural effusion. Liver: Normal morphology. Normal density. Biliary: No gross biliary ductal dilatation allowing for noncontrast technique. Gallbladder contains gallstones. Pancreas: Normal noncontrast appearance. Spleen: Normal noncontrast appearance. Adrenal glands: Normal noncontrast appearance. Kidneys and ureters: Normal noncontrast appearance. No nephrolithiasis. No hydronephrosis. Normal ureters. Bladder: Circumferential bladder wall thickening allowing for underdistention. Pelvic organs: Normal noncontrast appearance. Bowel: Normal appendix. No bowel obstruction. Peritoneal cavity: Trace free fluid in the pelvis. Lymph nodes: No gross lymphadenopathy allowing for noncontrast technique. Vasculature: Normal noncontrast appearance. Abdominal wall: Normal. Musculoskeletal: Normal. IMPRESSION: 1. Circumferential of bladder wall thickening suggested allowing for underdistention. Correlate with urinalysis to exclude cystitis. No other evidence of acute intra-abdominal pathology and limitations of this noncontrast examination. 2. Mosaic attenuation at the lung bases suggest small airways disease. Electronically signed by: Eyad Benitez M.D. 07/18/2017 8:32 PM Dictated Date/Time: 07/18/2017 8:26 PM GALLBLADDER-ABD LIMITED CLINICAL HISTORY: 26 years-old Female presenting with elevated LFT, RUQ abdominal pain. TECHNIQUE: Real-time grayscale and limited color Doppler ultrasound imaging of the abdomen limited to the right upper quadrant was performed. COMPARISON: CT performed earlier the same day. FINDINGS: Pancreas: Visualized portions of the pancreatic head and body normal. Liver: Normal echogenicity and echotexture. The liver measures 17.5 cm in maximal sagittal dimension. No sonographic evidence of hepatic mass. Main portal vein patent with normal directional flow. Biliary: No intrahepatic biliary ductal dilatation. Common bile duct measures up to 9 mm in diameter. Gallbladder: Gallstones without evidence of significant wall thickening, or pericholecystic fluid or inflammatory change. The gallbladder is likely physiologically distended. Unable to assess sonographic Barber's sign. Right kidney: Normal in appearance. No hydronephrosis. Ascites: None. IMPRESSION: Cholelithiasis with extrahepatic biliary ductal dilatation. This could suggest choledocholithiasis, which could be better characterized on MRCP. No sonographic evidence of cholecystitis. Physiologic distention of the gallbladder. Electronically signed by: Eyad Benitez M.D. 07/18/2017 9:28 PM Dictated Date/Time: 07/18/2017 9:25 PM Laboratory Results 07/18/17 19:20 Red Blood Count 4.59, Mean Corpuscular Volume 89.1, Mean Corpuscular Hemoglobin 32.5, Mean Corpuscular Hemoglobin Concent 36.4, Mean Platelet Volume 9.0, Neutrophils (%) (Auto) 81.0, Lymphocytes (%) (Auto) 10.7, Monocytes (%) (Auto) 7.1, Eosinophils (%) (Auto) 0.7, Basophils (%) (Auto) 0.2, Neutrophils # (Auto) 10.34, Lymphocytes # (Auto) 1.36, Monocytes # (Auto) 0.90, Eosinophils # (Auto) 0.09, Basophils # (Auto) 0.02 07/18/17 19:20 Test 07/18/17 19:20 07/18/17 20:00 White Blood Count 12.75 K/uL (4.8-10.8) Red Blood Count 4.59 M/uL (4.2-5.4) Hemoglobin 14.9 g/dL (12.0-16.0) Hematocrit 40.9 % (37-47) Mean Corpuscular Volume 89.1 fL (80-100) Mean Corpuscular Hemoglobin 32.5 pg (25-34) Mean Corpuscular Hemoglobin Concent 36.4 g/dl (32-36) Platelet Count 197 K/uL (130-400) Mean Platelet Volume 9.0 fL (7.4-10.4) Neutrophils (%) (Auto) 81.0 % Lymphocytes (%) (Auto) 10.7 % Monocytes (%) (Auto) 7.1 % Eosinophils (%) (Auto) 0.7 % Basophils (%) (Auto) 0.2 % Neutrophils # (Auto) 10.34 K/uL (1.4-6.5) Lymphocytes # (Auto) 1.36 K/uL (1.2-3.4) Monocytes # (Auto) 0.90 K/uL (0.11-0.59) Eosinophils # (Auto) 0.09 K/uL (0-0.5) Basophils # (Auto) 0.02 K/uL (0-0.2) RDW Standard Deviation 39.0 fL (36.4-46.3) RDW Coefficient of Variation 12.1 % (11.5-14.5) Immature Granulocyte % (Auto) 0.3 % Immature Granulocyte # (Auto) 0.04 K/uL (0.00-0.02) Anion Gap 7.0 mmol/L (3-11) Est Creatinine Clear Calc Drug Dose 105.6 ml/min Estimated GFR () 117.1 Estimated GFR (Non- 101.0 BUN/Creatinine Ratio 11.9 (10-20) Calcium Level 9.3 mg/dl (8.5-10.1) Total Bilirubin 2.7 mg/dl (0.2-1) Direct Bilirubin 1.4 mg/dl (0-0.2) Aspartate Amino Transf (AST/SGOT) 261 U/L (15-37) Alanine Aminotransferase (ALT/SGPT) 495 U/L (12-78) Alkaline Phosphatase 171 U/L (45-117) Total Protein 7.7 gm/dl (6.4-8.2) Albumin 3.8 gm/dl (3.4-5.0) Lipase 163 U/L (73-393) Urine Color DK YELLOW Urine Appearance CLEAR (CLEAR) Urine pH 5.5 (4.5-7.5) Urine Specific [place] 1.023 (1.000-1.030) Urine Protein NEG (NEG) Urine Glucose (UA) NEG (NEG) Urine Ketones NEG (NEG) Urine Occult Blood NEG (NEG) Urine Nitrite (NEG) Urine Bilirubin 2+ (NEG) Urine Urobilinogen POS (NEG) Urine Leukocyte Esterase TRACE (NEG) Urine WBC (Auto) 1-5 /hpf (0-5) Urine RBC (Auto) 0-4 /hpf (0-4) Urine Hyaline Casts (Auto) 1-5 /lpf (0-5) Urine Epithelial Cells (Auto) 10-20 /lpf (0-5) Urine Bacteria (Auto) NEG (NEG) Urine Test NEG (NEG) Laboratory results as stated above per my review. Medications Administered Medications (Trade) Dose Ordered Sig/Evelyn Route Start Time Stop Time Status Last Admin Dose Admin Ondansetron HCl (Zofran Inj) 4 mg NOW STAT IV 07/18/17 19:48 07/18/17 19:51 DC 07/18/17 20:49 4 MG Ketorolac Tromethamine (Toradol Inj) 60 mg NOW STAT IM 07/18/17 19:48 07/18/17 19:51 DC 07/18/17 20:48 60 MG Sodium Chloride 1,000 ml @ 999 mls/hr Q1H1M STAT IV 07/18/17 19:48 07/18/17 20:48 DC 07/18/17 20:49 999 MLS/HR Piperacillin Sod/ Tazobactam Sod (Zosyn Iv) 3.375 gm NOW STAT IV 07/18/17 21:38 07/18/17 21:45 DC 07/18/17 21:53 3.375 GM ED Course 1947: Ordered NSS 1000 ml @ 999 mls/hr IV, Toradol Inj 60 mg IM, Zofran Inj 4 mg IV. 1951: Previous medical records were reviewed. The patient was evaluated in room A3. A complete history and physical examination was performed. 1999: I reevaluated the patient and she was doing well. 2047:I reevaluated the patient and she is resting comfortably. 2137: Ordered Zosyn Iv 3.375 gm IV. 2140: I went to evaluate the patient and the patient was still in ultrasound. 2144: Discussed the patient's case with Dr. De La Rosa. The patient will be evaluated for further treatment and disposition. 2199: I discussed the patient's case with Dr. Prater who said he would follow up with internal medicine. 2203: I reevaluated the patient and updated her on the plans for her to stay. Medical Decision Differential considered: pancreatitis, hepatitis, or acute cholecystitis, AAA, UTI, pyelonephritis, kidney stones, appendicitis, diverticulitis, shingles, bowel obstruction mesenteric ischemia, intussusception,hernia, testicular torsion, ovarian torsion, ruptured ovarian cyst,ectopic , . This is a 26-year-old female who presents to the ED with a chief complaint of abdominal pain. The patient reports a fever yesterday as well as bilateral low back pain and lower abdominal pain. She also reported some frequency with urination and incontinence of urine. She denied any dysuria or vaginal discharge. She delivered a baby 4 months ago. Her exam reveals some tenderness to the right lower quadrant, suprapubic area and less so in the right upper quadrant. She had some mild bilateral CVA tenderness. She does report associated nausea and vomiting with her symptoms of pain. Physical exam revealed normal vital signs. She is afebrile. At ultrasound of the gallbladder reveals choledocholithiasis. CT scan of the abdomen revealed cholelithiasis. There is no findings to suggest cholecystitis. White blood cell count was 12.75. Total bilirubin, AST and ALT are elevated as is alkaline phosphatase. Urine did not show obvious infection and a test was negative. The patient was treated with IV antibiotics. She was given IV pain medication as well as IV nausea medication and IV fluids. She'll be seen by the hospitalist for further inpatient evaluation and care. Medication Reconcilliation Current Medication List: was personally reviewed by me Blood Pressure Screening Patient's blood pressure: Normal blood pressure Will be further monitored by the hospitalist. Consults Time Called: 2139 Consulting Physician: Dr. De La Rosa- [facility] Returned Call: 2144 Discussed the patient's case with Dr. De La Rosa. The patient will be evaluated for further treatment and disposition. Additional Consults: Time Called: 2149 Consulted Physician: Dr. Franky MORATAYA Returned Call: 2199 Additional Comments: I discussed the patient's case with Dr. Prater who said he would follow up with internal medicine. Impression Primary Impression: Choledocholithiasis Additional Impressions: Common bile duct dilation Transaminitis Hyperbilirubinemia Vomiting Abdominal pain Scribe Attestation The scribe's documentation has been prepared under my direction and personally reviewed by me in its entirety. I confirm that the note above accurately reflects all work, treatment, procedures, and medical decision making performed by me. Departure Information Dispostion Being Evaluated By Hospitalist Referrals Mark Tyler M.D. (PCP) Patient Instructions My [facility] Problem Qualifiers
[2017-07-18 20:03] LABS: ALBUMIN 3.8 gm/dl (3.4-5.0); CALCIUM 9.3 mg/dl (8.5-10.1); CREATININE 0.8 mg/dl (0.60-1.20); POTASSIUM 3.5 mmol/L (3.5-5.1)
[2017-07-18 20:06] LABS: TOTAL PROTEIN 7.7 gm/dl (6.4-8.2)
[2017-07-18] MEDS ORDERED: METO1TAB54 PO (20:32)
[2017-07-18] MEDS ORDERED: ACET-1256 PO (20:32)
--- NOTE | 2017-07-18 20:33 | DIAGNOSTIC IMAGING REPORT ---
ABD/PELVIS WITHOUT FOR STONE CLINICAL HISTORY: 26 years-old Female presenting with abdominal and back pain . TECHNIQUE: Multidetector CT of the abdomen and pelvis was performed without the use of intravenous contrast. IV contrast: None. A dose lowering technique was used consistent with the principles of ALARA (as low as reasonably achievable). COMPARISON: None. CT DOSE (mGy.cm): The estimated cumulative dose is 1075.89 mGy.cm. FINDINGS: Stoker Erector topogram: Unremarkable. Lung bases: Mosaic attenuation at the lung bases suggest small airways disease. Normal heart size. No pericardial or pleural effusion. Liver: Normal morphology. Normal density. Biliary: No gross biliary ductal dilatation allowing for noncontrast technique. Gallbladder contains gallstones. Pancreas: Normal noncontrast appearance. Spleen: Normal noncontrast appearance. Adrenal glands: Normal noncontrast appearance. Kidneys and ureters: Normal noncontrast appearance. No nephrolithiasis. No hydronephrosis. Normal ureters. Bladder: Circumferential bladder wall thickening allowing for underdistention. Pelvic organs: Normal noncontrast appearance. Bowel: Normal appendix. No bowel obstruction. Peritoneal cavity: Trace free fluid in the pelvis. Lymph nodes: No gross lymphadenopathy allowing for noncontrast technique. Vasculature: Normal noncontrast appearance. Abdominal wall: Normal. Musculoskeletal: Normal. IMPRESSION: 1. Circumferential of bladder wall thickening suggested allowing for underdistention. Correlate with urinalysis to exclude cystitis. No other evidence of acute intra-abdominal pathology and limitations of this noncontrast examination. 2. Mosaic attenuation at the lung bases suggest small airways disease. Electronically signed by: Eyad Benitez M.D. 07/18/2017 8:32 PM Dictated Date/Time: 07/18/2017 8:26 PM
--- NOTE | 2017-07-18 21:29 | DIAGNOSTIC IMAGING REPORT ---
GALLBLADDER-ABD LIMITED CLINICAL HISTORY: 26 years-old Female presenting with elevated LFT, RUQ abdominal pain. TECHNIQUE: Real-time grayscale and limited color Doppler ultrasound imaging of the abdomen limited to the right upper quadrant was performed. COMPARISON: CT performed earlier the same day. FINDINGS: Pancreas: Visualized portions of the pancreatic head and body normal. Liver: Normal echogenicity and echotexture. The liver measures 17.5 cm in maximal sagittal dimension. No sonographic evidence of hepatic mass. Main portal vein patent with normal directional flow. Biliary: No intrahepatic biliary ductal dilatation. Common bile duct measures up to 9 mm in diameter. Gallbladder: Gallstones without evidence of significant wall thickening, or pericholecystic fluid or inflammatory change. The gallbladder is likely physiologically distended. Unable to assess sonographic Barber's sign. Right kidney: Normal in appearance. No hydronephrosis. Ascites: None. IMPRESSION: Cholelithiasis with extrahepatic biliary ductal dilatation. This could suggest choledocholithiasis, which could be better characterized on MRCP. No sonographic evidence of cholecystitis. Physiologic distention of the gallbladder. Electronically signed by: Eyad Benitez M.D. 07/18/2017 9:28 PM Dictated Date/Time: 07/18/2017 9:25 PM
[2017-07-18] MEDS ORDERED: PIPERACILLIN/TAZOBACTAM 3.375 GM/100ML D5W IV STA (21:38)
[2017-07-18 23:10] VITALS: BP 107/66; PULSE 67; TEMP 36.5; O2SAT 98; Ht 160 cm; Wt 79.7 kg
[2017-07-19] VITALS (9 sets, daily range): BP systolic 107–121; BP diastolic 62–81; PULSE 58–76; TEMP 36.4–36.9; O2SAT 93–98
[2017-07-19] MEDS ORDERED: PIPERACILL/TAZOBAC CONSULT ACTIVE PRN (00:15)
[2017-07-19] MEDS ORDERED: IV FLUIDS COMPLETED PRN (00:30)
[2017-07-19] MEDS: D5W AND NSS 1,000 ML IV SCH ×4 (00:44→19:51)
[2017-07-19] MEDS: ACETAMINOPHEN IV 650 MG in EMPTY BAG 0 ML IV PRN ×4 (01:35→23:16)
[2017-07-19] MEDS ORDERED: NICOTINE 14 MG/24 HR TDSY TD ONE (01:51)
[2017-07-19] MEDS: PIPERACILL/TAZOBAC IV 3.375 GM in DEXTROSE 5% 100ML 100 ML IV SCH ×3 (02:00→18:22)
--- NOTE | 2017-07-19 03:34 | HISTORY & PHYSICAL EXAMINATION ---
DATE OF ADMISSION: 07/19/2017 TIME: 02:36 a.m. HISTORY OF PRESENT ILLNESS: The patient is a very pleasant 26-year-old female with a history of GERD, gastroparesis and smoking presenting with abdominal pain starting 1 day prior to admission. The patient was apparently doing well until the evening prior to admission when while watching TV, she started to have abdominal pain from the right upper quadrant spreading to the upper quadrant epigastric area and also to back. The patient states that the pain has persisted through the day and resulting to poor oral intake. This evening, the patient got worse and the patient presented to the ER. At the ER, the patient was afebrile, heart rate of 91, blood pressure 110/71. CAT scan of abdomen and pelvis showed no signs of kidney stones, but the gallbladder ultrasound did show cholelithiasis with extrahepatic biliary ductal dilatation suggesting possible choledocholithiasis. Also, her labs revealed elevated bilirubin a total 2.7, direct of 1.4, AST/ALT elevated, alkaline phosphatase elevated. The patient is referred to the hospitalist for admission. On exam, the patient is seen sitting up in bed resting. States that her abdominal pain is now 4/10 after Toradol from the ER. Also, nausea is improved with Zofran. She has also been started with Zosyn. She states that the pain is still 4/10, but denies having any chest pain, shortness of breath, palpitations or dizziness. No other symptoms noted. No urinary symptoms. REVIEW OF SYSTEMS: Ten systems reviewed and negative except for the ones mentioned above. PAST MEDICAL HISTORY: GERD, gastroparesis and smoker. PAST SURGICAL HISTORY: Vaginal delivery, dental surgery, D&C, EGD in 2009 negative for celiac disease, no esophageal damage. Nasal surgery. PERSONAL AND SOCIAL HISTORY: The patient is single. Current everyday smoker. Denies alcohol use. Denies drug use. FAMILY HISTORY: Father alcoholism. Mother hypertension. PHYSICAL EXAMINATION: VITAL SIGNS: Blood pressure 107/66, pulse rate of 67, respiratory rate of 16, temperature 36.5, saturating 98% on room air. GENERAL: The patient is awake, alert, oriented x3, not in distress, speaks in sentences. No accessory muscle use. HEAD AND NECK: Normocephalic head. Normal pupils. Full EOMs. No icterus. [place] conjunctivae. ENT: Grossly normal. NECK: No JVD, no lymphadenopathy or thyromegaly. HEART: Normal rate. Regular rhythm. S1, S2. No murmurs. LUNGS: Clear breath sounds bilaterally. No rales or wheezes. ABDOMEN: Nondistended. Soft. Normal bowel sounds. Positive tenderness in the upper quadrants and epigastric region. EXTREMITIES: Legs no edema, no rashes noted. NEUROLOGIC: No focal motor or sensory deficits. LABORATORY DATA: White count is 12.7, hemoglobin of 14.9, platelet count is 107. Chemistry: Sodium 130, potassium 3.5, BUN is 9, creatinine is 0.8, random glucose 105 and calcium 9.3. LFTs as per H&P. Urinalysis positive urobilinogen, trace leukocyte esterase. Blood cultures pending. IMAGING: Gallbladder ultrasound and abdominal CT per my H&P. ASSESSMENT AND PLAN: This is a very pleasant 26-year-old female with a history of GERD, gastroparesis, smoker, presenting with abdominal pain starting Ba prior to admission. 1. Abdominal pain likely secondary to choledocholithiasis, possible developing cholangitis. Currently, the patient is afebrile, blood pressure is stable. No signs of sepsis. We will continue to monitor given a white count elevation. We will check blood cultures. Place her on empiric Zosyn. We will keep her n.p.o., IV fluids and pain control with p.r.n. IV Tylenol. The patient is declining any other analgesics at this point. GI has been consulted. Case was discussed by the ER team with Dr. Prater who advised to keep the patient n.p.o. for now for reevaluation in the morning. We will also trend her LFTs. 2. Cholelithiasis. Gallbladder ultrasound did not show gallbladder ultrasound did not show any evidence of significant wall thickening, pericholecystic fluid or inflammatory change and no sonographic evidence of cholecystitis was found. At this point, we will continue to monitor the patient with regards to that. 3. Deep venous thrombosis prophylaxis, SCDs only given possible procedures in the morning. 4. Code status. Full code as per patient. 5. Disposition: Pending. Anticipate d/c home. Follow with primary care. Follow up with GI. REINA
--- NOTE | 2017-07-19 07:59 | DIAGNOSTIC IMAGING REPORT ---
MRCP CLINICAL HISTORY: Right upper quadrant abdominal pain. Evaluate for choledocholithiasis. COMPARISON STUDY: Right upper quadrant ultrasound and CT of the abdomen and pelvis July 18, 2017. TECHNIQUE: Utilizing a 1.5 Huong magnet and dedicated coil, multiplanar, multiecho imaging of the upper abdomen was performed utilizing heavily T2 weighted pulsing sequences. No intravenous contrast was administered. FINDINGS: There are numerous gallstones within the gallbladder. Gallbladder wall thickening is noted with trace pericholecystic fluid. No common bile duct calculi are identified although exam is compromised by motion artifact and small distal common bile duct calculi could be obscured on this examination. Caliber of the common bile duct is at the upper limits of normal, measuring 6 mm. There is pancreas divisum. There is no peripancreatic infiltration or peripancreatic fluid collections. Unenhanced images of the liver, spleen, adrenal glands and kidneys are normal. There is no hydronephrosis. No upper abdominal adenopathy is present. IMPRESSION: 1. Cholelithiasis with gallbladder wall thickening and possible trace pericholecystic fluid. Acute cholecystitis is favored. 2. Top normal caliber common bile duct. No common bile duct calculi identified although exam compromised by motion artifact and small common bile duct calculi could be obscured on this exam. 3. Pancreas divisum. No peripancreatic infiltration or fluid. Electronically signed by: Donnie Darling M.D. 07/19/2017 7:58 AM Dictated Date/Time: 07/19/2017 7:48 AM
[2017-07-19] MEDS: NICOTINE 14 MG/24 HR TDSY TD SCH (08:41)
[2017-07-19 09:00] LABS: ALBUMIN 3.2 gm/dl (3.4-5.0); CALCIUM 8.6 mg/dl (8.5-10.1); CREATININE 0.78 mg/dl (0.60-1.20); POTASSIUM 3.5 mmol/L (3.5-5.1); TOTAL PROTEIN 6.6 gm/dl (6.4-8.2)
--- NOTE | 2017-07-19 09:19 | Pre-Operative Consultation ---
History General Date of Service: Jul 19, 2017. Stated Complaint: abdominal pain HPI HPI: The patient is a 26 year old female being seen at the request of Dr. Lugo for cholelithiasis. She has had ongoing abdominal pain for 1 yr which started during her . This is described as a band of pain in the upper abdomen, pressure sensation, feeling of fullness and nausea. She had attributed this to her gastroparesis but yesterday, while watching TV, she noted the onset of the same pain but much worse than typical. 10/10 in intensity, radiate to shoulder and back, felt "like heartburn and pneumonia at the same time", associated with nausea and vomiting. Pain was worse with movement, deep breath. Can happen after eating anything but always happens after eating [employer]. Does note diarrhea at times. Came to the ER and was found to have cholelithiasis and elevation of LFT's. MRCP done and was negative. Historian: patient Anticipated Procedure: lap ines with IOC Procedure Urgency: Acute Risk Assessment Major Risk Factors: no known hx of unstable or severe angina, no known hx of recent AK, no known hx of decompensated CHF, no known hx of severe valvular disease Pre-Op Conditions: no known hx of stable angina, no known hx of compensated CHF , no known hx of history of AK, no known hx of recent PCI, no known hx of pacemaker, no known hx of cerebrovascular disease, no known hx of renal insufficiency, no known hx of COPD, no known hx of h/o anesthesia problems, no known hx of elevated BNP, no known hx of implanted defibrillator, no known hx of h/o orthostatic intolerance, no known hx of liver disease, no known hx of asthma, no known hx of family h/o anesthesia problems, no known hx of arrhythmia , no known hx of valvular heart disease, no known hx of diabetes, no known hx of thyroid disease, no known hx of seizure disorder, no known hx of problems w/ neck or jaw, no known hx of other Daily beta van use?: No Problem List Medical Problems: (1) Abdominal pain Status: Acute (2) Choledocholithiasis Status: Acute (3) Common bile duct dilation Status: Acute (4) Hyperbilirubinemia Status: Acute (5) Nausea, vomiting and diarrhea Status: Acute (6) Transaminitis Status: Acute (7) Vomiting Status: Acute Medical & Surgical History Past Medical History: GERD, other (gastroparesis) Past Surgical History: D&C, tonsillectomy, other (foot surgery) Family History Family History: gallbladder disease (in all the women in her family) Social History Hx Tobacco Use In Past Year?: Yes Smoking Status: Current Every Day Smoker Marital status: in relationship Allergies Allergies: Coded Allergies: BEE STING (Verified Allergy, Severe, ANAPHYLAXIS, 03/10/17) Adhesives (Verified Allergy, Intermediate, RASH, 03/10/17) Latex (Verified Allergy, Intermediate, RASH, 03/10/17) [place] (Verified Allergy, Intermediate, RASH, 03/10/17) Evonne Oil (Verified Allergy, Intermediate, HIVES, 03/10/17) Metoclopramide (Verified Adverse Reaction, Intermediate, TREMORS, 03/10/17) Medications Current Inpatient Medications Current Inpatient Medications Medications (Trade) Dose Ordered Sig/Evelyn Route Start Time Stop Time Status Last Admin Dose Admin Piperacillin Sod/ Tazobactam Sod 3.375 gm/Dextrose 115 ml @ 28 mls/hr Q8H IV 07/19/17 02:00 07/29/17 01:59 07/19/17 02:00 28 MLS/HR Dextrose/Sodium Chloride 1,000 ml @ 100 mls/hr Q10H IV 07/18/17 23:45 08/17/17 23:44 07/19/17 08:50 100 MLS/HR Acetaminophen 650 mg/Empty Bag 65 ml @ 260 mls/hr Q6H PRN IV 07/18/17 23:45 08/17/17 23:44 07/19/17 08:40 260 MLS/HR Ondansetron HCl (Zofran Inj) 4 mg Q6H PRN IV 07/18/17 23:45 08/17/17 23:44 Piperacillin Sod/ Tazobactam Sod (Consult) 1 ea UD PRN N/A 07/19/17 00:15 08/18/17 00:14 Miscellaneous (Iv Fluids Completed) 1 ea PRN PRN N/A 07/19/17 00:30 07/19/18 00:29 Nicotine (Nicoderm Cq 14MG Patch) 1 patch QAM TD 07/19/17 09:00 08/18/17 08:59 07/19/17 08:41 1 PATCH Miscellaneous (Remove Nicoderm Patch) 1 ea HS N/A 07/19/17 21:00 08/18/17 20:59 Review of Systems Review of Systems Constitutional: chills, fever Eyes: reports: no symptoms ENT: reports: no symptoms reported Cardiovascular: reports: no symptoms reported Respiratory: reports: no symptoms reported Gastrointestinal: see HPI Genitourinary - Female: reports: no symptoms Musculoskeletal: no symptoms reported Integumentary: no symptoms reported Neurologic: reports: no symptoms Psychiatric: reports: no symptoms Endocrine: no symptoms Hematologic / Lymphatic: no symptoms Allergic / Immunologic: no symptoms Physical Exam Physical Exam General Appearance: + WD/WN, No distress Ears, Nose, Throat: + normal ENT inspection Neck: No thyromegaly, No tracheal deviation Respiratory: No accessory muscle use, No decreased breath sounds, No respiratory distress, No crackes Cardiovascular: No abnormal peripheral pulse, No abnormal rate, No edema, No diastolic murmur, No systolic murmur Abdomen: + tenderness (mild in RUQ), No abnormal bowel sounds, No distension, No hernia, No guarding Extremities: No abnormal range of motion, No edema Neurologic/Psychiatric: No 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, No decreased LOC Skin Characteristics: No abnormal color, No cyanosis Diagnostics Labs Labs Results Past 24 Hours Test 07/18/17 19:20 07/18/17 20:00 07/19/17 08:29 Range/Units White Blood Count 12.75 4.8-10.8 K/uL Red Blood Count 4.59 4.2-5.4 M/uL Hemoglobin 14.9 12.0-16.0 g/dL Hematocrit 40.9 37-47 % Mean Corpuscular Volume 89.1 80-100 fL Mean Corpuscular Hemoglobin 32.5 25-34 pg Mean Corpuscular Hemoglobin Concent 36.4 32-36 g/dl Platelet Count 197 130-400 K/uL Mean Platelet Volume 9.0 7.4-10.4 fL Neutrophils (%) (Auto) 81.0 % Lymphocytes (%) (Auto) 10.7 % Monocytes (%) (Auto) 7.1 % Eosinophils (%) (Auto) 0.7 % Basophils (%) (Auto) 0.2 % Neutrophils # (Auto) 10.34 1.4-6.5 K/uL Lymphocytes # (Auto) 1.36 1.2-3.4 K/uL Monocytes # (Auto) 0.90 0.11-0.59 K/uL Eosinophils # (Auto) 0.09 0-0.5 K/uL Basophils # (Auto) 0.02 0-0.2 K/uL RDW Standard Deviation 39.0 36.4-46.3 fL RDW Coefficient of Variation 12.1 11.5-14.5 % Immature Granulocyte % (Auto) 0.3 % Immature Granulocyte # (Auto) 0.04 0.00-0.02 K/uL Sodium Level 135 140 136-145 mmol/L Potassium Level 3.5 3.5 3.5-5.1 mmol/L Chloride Level 103 107 98-107 mmol/L Carbon Dioxide Level 25 25 21-32 mmol/L Anion Gap 7.0 8.0 3-11 mmol/L Blood Urea Nitrogen 9 9 7-18 mg/dl Creatinine 0.80 0.78 0.60-1.20 mg/dl Est Creatinine Clear Calc Drug Dose 105.6 108.3 ml/min Estimated GFR () 117.1 120.8 Estimated GFR (Non- 101.0 104.2 BUN/Creatinine Ratio 11.9 11.4 10-20 Random Glucose 105 90 70-99 mg/dl Calcium Level 9.3 8.6 8.5-10.1 mg/dl Total Bilirubin 2.7 1.0 0.2-1 mg/dl Direct Bilirubin 1.4 0-0.2 mg/dl Aspartate Amino Transf (AST/SGOT) 261 124 15-37 U/L Alanine Aminotransferase (ALT/SGPT) 495 349 12-78 U/L Alkaline Phosphatase 171 148 45-117 U/L Total Protein 7.7 6.6 6.4-8.2 gm/dl Albumin 3.8 3.2 3.4-5.0 gm/dl Lipase 163 73-393 U/L Urine Color DK YELLOW Urine Appearance CLEAR CLEAR Urine pH 5.5 4.5-7.5 [address] [place] 1.023 1.000-1.030 Urine Protein NEG NEG Urine Glucose (UA) NEG NEG Urine Ketones NEG NEG Urine Occult Blood NEG NEG Urine Nitrite NEG Urine Bilirubin 2+ NEG Urine Urobilinogen POS NEG Urine Leukocyte Esterase TRACE NEG Urine WBC (Auto) 1-5 0-5 /hpf Urine RBC (Auto) 0-4 0-4 /hpf Urine Hyaline Casts (Auto) 1-5 0-5 /lpf Urine Epithelial Cells (Auto) 10-20 0-5 /lpf Urine Bacteria (Auto) NEG NEG Urine Test NEG NEG Globulin 3.4 2.5-4.0 gm/dl Albumin/Globulin Ratio 0.9 0.9-2 Microbiology Results 07/19/17 Blood Culture, Received Pending 07/18/17 Blood Culture, Received Pending Lab Interpretation Lab Interpretation: labs were reviewed Diagnostic Radiology Diagnostic Radiology US showed cholelithiasis with suggestion of choledocholithiasis, CBD 9 mm MRCP negative for choledocholithiasis although there was motion artifact. Impression Assessment and Plan Assessment and Plan 26 yr old woman with cholelithiasis and elevated liver function tests suggesting she passed a gallstone. MRCP negative but suboptimal due to motion artifact. Explained need for laparoscopic cholecystectomy with IOC. If CBD stones found, will need ercp. If IOC negative, should be able to be discharged tomorrow. Explained that if cholangiogram cannot be obtained due to amount of inflammation, then she would need to be monitored and carries risk of needing ercp later if lft's increase again. Risks of lap ines to include bleeding, infection, conversion to open, postop diarrhea, intolerance to foods postop, need for ercp for bile leak or retained stone all discussed. Consent signed. Will post to OR schedule for today.
--- NOTE | 2017-07-19 12:08 | Gastrointestinal Consultation ---
Gastrointestinal Consultation Date of Consultation: Jul 19, 2017 Attending Physician: Sacha Lucas Consulting Physician: Stanislaw Craft Reason for Consultation: Choledocholithasis History of Present Illness Patient is a 26 year old female w PMHx of GERD, gastroparesis and tobacco abuse who presented to ED w c/o abd pain from RUQ to epigastric region, also radiating to back. Has associated poor appetite and nausea. Upon questioning she noted had symptoms for about 1 yr now and always thought it's related to her gastroparesis. Labs showed elevated LFTs: Tbili 2, AST 400s, ALT 200s, AP 171, normal Lipase. She did have mild leukocytosis WBC 12K. Initial abd imaging w gallbladder u/s and CT abd/pelvis showed signs of cholelithiasis w/o cholecystitis, and also CBD dilation at 9mm. Choledocholithiasis suspected and MRCP performed this AM which showed no signs of choledocholithiasis but not entirely excluded. CBD 6mm. She has some pericholecystic fluid suspicious for cholecystitis. Her LFTs are trending down this AM. Abd pain is improved, no n/ v. Appetite still poor. Past Medical/Surgical History Medical Problems: (1) Abdominal pain Status: Acute (2) Choledocholithiasis Status: Acute (3) Common bile duct dilation Status: Acute (4) Hyperbilirubinemia Status: Acute (5) Nausea, vomiting and diarrhea Status: Acute (6) Transaminitis Status: Acute (7) Vomiting Status: Acute Past Medical History: As above Past Surgical History: Vaginal delivery, dental surgery, D&C, EGD in 2009 negative for celiac disease, no esophageal damage. Nasal surgery. Family History No pertinent family history Social History Smoking Status: Current Every Day Smoker Alcohol Use: occasionally Drug Use: none Marital Status: in relationship Housing Status: lives with family Allergies Coded Allergies: BEE STING (Verified Allergy, Severe, ANAPHYLAXIS, 07/19/17) Adhesives (Verified Allergy, Intermediate, RASH, 07/19/17) Latex (Verified Allergy, Intermediate, RASH, 07/19/17) [place] (Verified Allergy, Intermediate, RASH, 07/19/17) Evonne Oil (Verified Allergy, Intermediate, HIVES, 07/19/17) Metoclopramide (Verified Adverse Reaction, Intermediate, TREMORS, 07/19/17 ) Current Medications Home Meds and Scripts Medications Dose Route/Sig Max Daily Dose Days Date Category Reglan (Metoclopramide Hcl) 5 Mg Tab 5 Mg PO BID PRN 07/18/17 Reported Tylenol (Acetaminophen) 500 Mg Tab 1,000 Mg PO Q6 PRN 07/18/17 Reported Flintstones Plus Iron (Pediatric Multiple Vitamins W/) 1 Chw Chw 1 Tab PO DAILY 02/20/17 Reported Review of Systems Constitutional: No fever, No chills Respiratory: No cough, No shortness of breath Abdomen: + pain, + nausea, No vomiting, No GI bleeding Skin: No rash, No itch, No jaundice Physical Exam Date Time Temp Pulse Resp B/P (MAP) Pulse Ox O2 Delivery O2 Flow Rate FiO2 07/19/17 09:41 36.4 66 17 109/69 (82) 97 Room Air 07/19/17 07:45 Room Air 07/18/17 23:10 Room Air 07/18/17 23:10 36.5 67 16 107/66 98 Room Air 07/18/17 23:01 91 110/71 98 Room Air 07/18/17 23:00 36.7 91 18 110/71 96 07/18/17 19:08 36.7 91 18 110/71 96 Room Air General Appearance: WD/WN, no apparent distress Eyes: normal inspection, PERRL, EOMI Neck: supple, no JVD, trachea midline Respiratory/Chest: normal breath sounds, no respiratory distress, no accessory muscle use Cardiovascular: regular rate, rhythm, no gallop, no murmur Abdomen: normal bowel sounds, soft, + tenderness (RUQ ) Extremities: normal inspection, no pedal edema, no calf tenderness Neurologic/Psych: alert, normal mood/affect, oriented x 3 Skin: normal color, no jaundice, no rash Laboratory Results Last 24 Hours Test 07/18/17 19:20 07/18/17 20:00 07/19/17 08:29 White Blood Count 12.75 K/uL Red Blood Count 4.59 M/uL Hemoglobin 14.9 g/dL Hematocrit 40.9 % Mean Corpuscular Volume 89.1 fL Mean Corpuscular Hemoglobin 32.5 pg Mean Corpuscular Hemoglobin Concent 36.4 g/dl Platelet Count 197 K/uL Mean Platelet Volume 9.0 fL Neutrophils (%) (Auto) 81.0 % Lymphocytes (%) (Auto) 10.7 % Monocytes (%) (Auto) 7.1 % Eosinophils (%) (Auto) 0.7 % Basophils (%) (Auto) 0.2 % Neutrophils # (Auto) 10.34 K/uL Lymphocytes # (Auto) 1.36 K/uL Monocytes # (Auto) 0.90 K/uL Eosinophils # (Auto) 0.09 K/uL Basophils # (Auto) 0.02 K/uL RDW Standard Deviation 39.0 fL RDW Coefficient of Variation 12.1 % Immature Granulocyte % (Auto) 0.3 % Immature Granulocyte # (Auto) 0.04 K/uL Sodium Level 135 mmol/L 140 mmol/L Potassium Level 3.5 mmol/L 3.5 mmol/L Chloride Level 103 mmol/L 107 mmol/L Carbon Dioxide Level 25 mmol/L 25 mmol/L Anion Gap 7.0 mmol/L 8.0 mmol/L Blood Urea Nitrogen 9 mg/dl 9 mg/dl Creatinine 0.80 mg/dl 0.78 mg/dl Est Creatinine Clear Calc Drug Dose 105.6 ml/min 108.3 ml/min Estimated GFR () 117.1 120.8 Estimated GFR (Non- 101.0 104.2 BUN/Creatinine Ratio 11.9 11.4 Random Glucose 105 mg/dl 90 mg/dl Calcium Level 9.3 mg/dl 8.6 mg/dl Total Bilirubin 2.7 mg/dl 1.0 mg/dl Direct Bilirubin 1.4 mg/dl Aspartate Amino Transf (AST/SGOT) 261 U/L 124 U/L Alanine Aminotransferase (ALT/SGPT) 495 U/L 349 U/L Alkaline Phosphatase 171 U/L 148 U/L Total Protein 7.7 gm/dl 6.6 gm/dl Albumin 3.8 gm/dl 3.2 gm/dl Lipase 163 U/L Urine Color DK YELLOW Urine Appearance CLEAR Urine pH 5.5 Urine Specific [place] 1.023 Urine Protein NEG Urine Glucose (UA) NEG Urine Ketones NEG Urine Occult Blood NEG Urine Nitrite Urine Bilirubin 2+ Urine Urobilinogen POS Urine Leukocyte Esterase TRACE Urine WBC (Auto) 1-5 /hpf Urine RBC (Auto) 0-4 /hpf Urine Hyaline Casts (Auto) 1-5 /lpf Urine Epithelial Cells (Auto) 10-20 /lpf Urine Bacteria (Auto) NEG Urine Test NEG Globulin 3.4 gm/dl Albumin/Globulin Ratio 0.9 Impression Patient is a 26 year old female w nausea, abd pain (RUQ/epigastric radiating to back), elevated LFTs. Imaging studies concerning for cholelithiasis and possible choledocholithiasis though MRCP this AM showed no signs of choledocholithiasis but limited study due to somatic motion, possible cholecystitis. LFTs trending down. ? passed a gallstone. Surgery planning for lap cholecystectomy w IOC today. Plan - Keep NPO - Will check IOC if positive will plan for ERCP for choledocholithiasis removal. - Continue antibx coverage for now. - Monitor LFTs ATTESTATION: I have performed a history and physical examination of this patient and reviewed the electronic record. Specifically, I obtained informed consent for ERCP in the event that it is necessary after cholecystectomy. OR cholangiogram, however, was negative for choledocholithiasis. I have discussed the case with GERA Jones. The above note reflects my findings, conclusions, and recommendations. Stanislaw Craft MD
[2017-07-19] MEDS: ONDANSETRON INJ 2 MG/ML 2 ML VIAL IV PRN ×2 (12:14→12:51)
[2017-07-19] MEDS ORDERED: BUPIVACAINE 0.5 % 5 MG/1 ML MPF 30ML VIAL ONE (12:50)
[2017-07-19] MEDS ORDERED: CONRAY 60% 50 ML VIAL ONE (12:50)
[2017-07-19] MEDS ORDERED: PROPOFOL IV EMULSION 10 MG/ML 20 ML VIAL IV ONE (12:56)
[2017-07-19] MEDS ORDERED: GLYCOPYRROLATE INJ 0.2 MG/ML VIAL ONE (12:56)
[2017-07-19] MEDS ORDERED: FENTANYL CITRATE INJ 50 MCG/1 ML 2 ML VIAL ONE ×2 (12:56→13:46)
[2017-07-19] MEDS ORDERED: NEOSTIGMINE METHYLSULFATE 5 MG/5 ML SYR ONE (12:56)
[2017-07-19] MEDS ORDERED: MIDAZOLAM HCL 1 MG/ML 2ML VIAL ONE (12:56)
[2017-07-19] MEDS ORDERED: ONDANSETRON INJ 2 MG/ML 2 ML VIAL ONE (12:56)
[2017-07-19] MEDS ORDERED: ROCURONIUM BROMIDE 10 MG/ML 5 ML VIAL IV ONE (12:56)
[2017-07-19] MEDS ORDERED: DEXAMETHASONE SOD INJ 4 MG/ML VIAL ONE (12:56)
[2017-07-19] MEDS ORDERED: LIDOCAINE HCL 2% 2 ML VIAL (20MG/ML) ONE (12:56)
[2017-07-19] MEDS ORDERED: ATROPINE SULFATE 0.1 MG/ML 5ML SYR IV PRN (13:15)
[2017-07-19] MEDS ORDERED: ONDANSETRON INJ 2 MG/ML 2 ML VIAL IV PRN (13:15)
[2017-07-19] MEDS ORDERED: EpHEDrine SULFATE INJ 50 MG/ML AMP IV PRN (13:15)
--- NOTE | 2017-07-19 14:32 | DIAGNOSTIC IMAGING REPORT ---
INTRAOPERATIVE CHOLANGIOGRAM HISTORY: Post cholecystectomy. FLUOROSCOPY TIME: 4 seconds. A single fluoroscopic spot image submitted. FINDINGS: Fluoroscopy was provided for an intraoperative cholangiogram status post cholecystectomy. Contrast was injected through the cystic duct remnant. Round filling defect seen within the common bile duct suggestive of a stone. Contrast extends into the small bowel. There is no intrahepatic bile duct dilatation. IMPRESSION: Fluoroscopy provided for an intraoperative cholangiogram status post cholecystectomy. Round filling defect seen within the mid common bile duct suggestive of a stone. Electronically signed by: Silvestre Nur M.D. 07/19/2017 2:31 PM Dictated Date/Time: 07/19/2017 2:30 PM
--- NOTE | 2017-07-19 15:02 | [facility] Post Operative Brief Note ---
Immediate Operative Summary Operative Date Jul 19, 2017. Pre-Operative Diagnosis Cholelithiasis, elevated liver function tests Post-Operative Diagnosis Cholelithiasis, elevated liver function tests Procedure(s) Performed Laparoscopic Cholecystectomy with intraoperative cholangiogram Surgeon Dr. Lauren Salcedo Pe Electrical Engineer Surgeon(s) none Estimated Blood Loss 5 cc Findings IOC showed normal flow into duodenum, no sign of filling defect other than balloon Specimens A: Gallbladder and contents Drains none Anesthesia GET Complication(s) None Disposition Recovery Room / PACU
[2017-07-19] MEDS: FENTANYL CITRATE INJ 50 MCG/1 ML 2 ML VIAL IV PRN ×4 (15:11→15:27)
[2017-07-19] MEDS ORDERED: MoRPHine SULFATE 2 MG/ML CARP IV PRN ×3 (15:15)
[2017-07-19] MEDS ORDERED: ACETAMINOPHEN 325 MG TAB PO PRN (15:15)
[2017-07-19] MEDS ORDERED: OXYCODONE/ACETAMINOPHEN 5-325 TAB PO PRN ×2 (15:15)
--- NOTE | 2017-07-19 15:26 | Anesthesiology Progress Note ---
Anesthesia Post Op Note Date & Time Jul 19, 2017 at 15:26 Vital Signs Pain Intensity: 5.0 Vital Signs Past 12 Hours Date Time Temp Pulse Resp B/P (MAP) Pulse Ox O2 Delivery O2 Flow Rate FiO2 07/19/17 15:20 91 20 116/59 92 Oxymask 3 07/19/17 15:10 80 20 119/64 95 Oxymask 5 07/19/17 15:02 36.7 100 17 115/78 98 Oxymask 5 07/19/17 09:41 36.4 66 17 109/69 (82) 97 Room Air 07/19/17 07:45 Room Air Notes Mental Status: alert / awake / arousable, participated in evaluation Pt Amnestic to Procedure: Yes Nausea / Vomiting: adequately controlled Pain: adequately controlled Airway Patency, RR, SpO2: stable & adequate BP & HR: stable & adequate Hydration State: stable & adequate Anesthetic Complications: no major complications apparent
--- NOTE | 2017-07-19 15:59 | OPERATIVE REPORT ---
DATE OF OPERATION: 07/19/2017 PREOPERATIVE DIAGNOSES: Cholelithiasis with elevated liver function tests, negative MRCP. POSTOPERATIVE DIAGNOSES: Same. OPERATIVE PROCEDURE: Laparoscopic cholecystectomy with intraoperative cholangiogram. ANESTHESIA: General endotracheal anesthesia. SURGEON: Dr. Lauren Salcedo. RESIDENTIAL PROGRAM WORKER: None. ESTIMATED BLOOD LOSS: 5 mL. SPECIMENS: Gallbladder and contents. OPERATIVE FINDINGS: Cholangiogram showed free flow into the duodenum. No evidence of filling defect. INDICATIONS: Ms. Interiano is a 26-year-old woman who presented to the hospital with worsening abdominal pain. She was found to have both elevated liver function tests as well as multiple gallstones within her gallbladder. Preoperative MRCP was negative for common duct stones, although her common duct was dilated at 9 mm. She was consented regarding laparoscopic cholecystectomy and cholangiogram. DESCRIPTION OF THE PROCEDURE: The patient was on Zosyn preoperatively. After the induction of general endotracheal anesthesia, she had placement of sequential compression devices. Her abdomen was sterilely prepped and draped. She was positioned in Trendelenburg. A supraumbilical incision was made and a Veress needle was placed into the peritoneal cavity. This was tested with the saline drop test. Pneumoperitoneum was established. Initial pressure was 4 mmHg and this was taken up to 15 mmHg. A 5 mm trocar was placed. The patient was switched into reverse Trendelenburg. Three additional trocars were placed under direct vision, an 11 in the epigastrium and two 5 on the right side of the abdomen. There was no evidence of any adhesions to the gallbladder. The gallbladder was quite long and then floppy. This was retracted over the edge of the liver. Dissection was begun at the triangle of Calot and a small anteriorly crossing branch of the cystic artery identified, this was clipped. The cystic duct was identified. Critical views were seen anteriorly and posteriorly. A clip was placed on the gallbladder side and a ductotomy created. A cholangiocatheter was passed under ductotomy and the balloon blown up. The cholangiogram was then performed with the findings noted above. There was no evidence of any common duct stones. There was a dilated common bile duct which was then tapered before entering into the duodenum. There was passage of contrast into the duodenum. The catheter was removed, two clips were placed below the ductotomy and the cystic duct divided. The cystic artery was then identified, this was doubly clipped on the remaining side, singly on the gallbladder side and divided. The gallbladder was then dissected off the liver bed without difficulty. It was then placed in an EndoCatch bag and removed through the epigastric incision. The abdomen was irrigated and noted to be hemostatic. The trocars were removed. 30 mL of 0.5% Marcaine had been used for local anesthesia throughout the procedure. The fascia of the epigastric incision was closed with a 0 Vicryl stitch placed anteriorly. The skin of all 4 incisions closed with running subcuticular 4-0 Vicryl sutures. Steri-Strip sterile dressings were applied. She was awakened and taken to recovery in stable condition. I attest to the content of the Intraoperative Record and any orders documented therein. Any exception s are noted below.
--- NOTE | 2017-07-19 17:40 | Progress Note ---
Internal Med Progress Note Date of Service: Jul 19, 2017. Provider Documentation: SUBJECTIVE: Patient seen and examined post-op. Patient reports some abdominal pain especially with deep breaths but otherwise generally comfortable in appearance OBJECTIVE: Exam: General- breathing on nasal cannula, no acute distress Eyes- EOMI Neck- no JVD, trachea is midline Lungs- Clear to auscultation anteriorly, no wheezing, on nasal cannula Heart- Regular rate Abdomen- soft, some tenderness of right side, 4 postop dressings over surgical sites of incisions Extremities- no edema ASSESSMENT & PLAN: 07/09/17 MRCP: "There are numerous gallstones within the gallbladder. Gallbladder wall thickening is noted with trace pericholecystic fluid" 07/19/17 Laparoscopic cholecystectomy with intraoperative cholangiogram Based on the OR report "There was no evidence of any common duct stones. There was a dilated common bile duct which was then tapered before entering into the duodenum. There was passage of contrast into the duodenum." However the radiologist reading the round filling defect seen within the mid common bile duct suggestive of a stone Disposition/Plan -Patient to rest overnight post-op. Will re-assess patient tomorrow AM. -Patient to continue receiving Zosyn for now, Blood cultures from 07/19/17 is pending results -Pain medications, On clear liquid diet, Advance diet as tolerated tomorrow AM -DVT prophylaxis with SCDs For when patient is discharged: Follow up appointments 07/25/17 2:[address] Olvin Morrow [address] [place] [address] Vital Signs: Date Time Temp Pulse Resp B/P (MAP) Pulse Ox O2 Delivery O2 Flow Rate FiO2 07/19/17 16:51 36.9 66 16 108/73 (85) 95 Room Air 07/19/17 16:20 36.8 59 16 114/74 (87) 93 Nasal Cannula 2.0 07/19/17 15:50 36.5 68 16 113/70 (84) 95 Oxymask 2.0 07/19/17 15:50 95 Oxymask 2.0 07/19/17 15:45 70 20 109/59 95 Oxymask 3 07/19/17 15:30 36.6 74 20 97/60 92 Oxymask 3 07/19/17 15:20 91 20 116/59 92 Oxymask 3 07/19/17 15:10 80 20 119/64 95 Oxymask 5 07/19/17 15:02 36.7 100 17 115/78 98 Oxymask 5 07/19/17 09:41 36.4 66 17 109/69 (82) 97 Room Air 07/19/17 07:45 Room Air 07/18/17 23:10 Room Air 07/18/17 23:10 36.5 67 16 107/66 98 Room Air 07/18/17 23:01 91 110/71 98 Room Air 07/18/17 23:00 36.7 91 18 110/71 96 07/18/17 19:08 36.7 91 18 110/71 96 Room Air Lab Results: Results Past 24 Hours Test 07/18/17 19:20 07/18/17 20:00 07/19/17 08:29 Range/Units White Blood Count 12.75 4.8-10.8 K/uL Red Blood Count 4.59 4.2-5.4 M/uL Hemoglobin 14.9 12.0-16.0 g/dL Hematocrit 40.9 37-47 % Mean Corpuscular Volume 89.1 80-100 fL Mean Corpuscular Hemoglobin 32.5 25-34 pg Mean Corpuscular Hemoglobin Concent 36.4 32-36 g/dl Platelet Count 197 130-400 K/uL Mean Platelet Volume 9.0 7.4-10.4 fL Neutrophils (%) (Auto) 81.0 % Lymphocytes (%) (Auto) 10.7 % Monocytes (%) (Auto) 7.1 % Eosinophils (%) (Auto) 0.7 % Basophils (%) (Auto) 0.2 % Neutrophils # (Auto) 10.34 1.4-6.5 K/uL Lymphocytes # (Auto) 1.36 1.2-3.4 K/uL Monocytes # (Auto) 0.90 0.11-0.59 K/uL Eosinophils # (Auto) 0.09 0-0.5 K/uL Basophils # (Auto) 0.02 0-0.2 K/uL RDW Standard Deviation 39.0 36.4-46.3 fL RDW Coefficient of Variation 12.1 11.5-14.5 % Immature Granulocyte % (Auto) 0.3 % Immature Granulocyte # (Auto) 0.04 0.00-0.02 K/uL Sodium Level 135 140 136-145 mmol/L Potassium Level 3.5 3.5 3.5-5.1 mmol/L Chloride Level 103 107 98-107 mmol/L Carbon Dioxide Level 25 25 21-32 mmol/L Anion Gap 7.0 8.0 3-11 mmol/L Blood Urea Nitrogen 9 9 7-18 mg/dl Creatinine 0.80 0.78 0.60-1.20 mg/dl Est Creatinine Clear Calc Drug Dose 105.6 108.3 ml/min Estimated GFR () 117.1 120.8 Estimated GFR (Non- 101.0 104.2 BUN/Creatinine Ratio 11.9 11.4 10-20 Random Glucose 105 90 70-99 mg/dl Calcium Level 9.3 8.6 8.5-10.1 mg/dl Total Bilirubin 2.7 1.0 0.2-1 mg/dl Direct Bilirubin 1.4 0-0.2 mg/dl Aspartate Amino Transf (AST/SGOT) 261 124 15-37 U/L Alanine Aminotransferase (ALT/SGPT) 495 349 12-78 U/L Alkaline Phosphatase 171 148 45-117 U/L Total Protein 7.7 6.6 6.4-8.2 gm/dl Albumin 3.8 3.2 3.4-5.0 gm/dl Lipase 163 73-393 U/L Urine Color DK YELLOW Urine Appearance CLEAR CLEAR Urine pH 5.5 4.5-7.5 Urine Specific [place] 1.023 1.000-1.030 Urine Protein NEG NEG Urine Glucose (UA) NEG NEG Urine Ketones NEG NEG Urine Occult Blood NEG NEG Urine Nitrite NEG Urine Bilirubin 2+ NEG Urine Urobilinogen POS NEG Urine Leukocyte Esterase TRACE NEG Urine WBC (Auto) 1-5 0-5 /hpf Urine RBC (Auto) 0-4 0-4 /hpf Urine Hyaline Casts (Auto) 1-5 0-5 /lpf Urine Epithelial Cells (Auto) 10-20 0-5 /lpf Urine Bacteria (Auto) NEG NEG Urine Test NEG NEG Globulin 3.4 2.5-4.0 gm/dl Albumin/Globulin Ratio 0.9 0.9-2 Microbiology Results 07/19/17 Blood Culture, Received Pending 07/18/17 Blood Culture, Received Pending
[2017-07-19] MEDS ORDERED: FLUCONAZOLE 50 MG TAB PO ONE (21:00)
[2017-07-20] MEDS: PIPERACILL/TAZOBAC IV 3.375 GM in DEXTROSE 5% 100ML 100 ML IV SCH ×2 (02:06→10:17)
[2017-07-20 04:02] VITALS: BP 104/60; PULSE 50; TEMP 37; O2SAT 94
[2017-07-20] MEDS: D5W AND NSS 1,000 ML IV SCH (05:59)
[2017-07-20] MEDS: ACETAMINOPHEN IV 650 MG in EMPTY BAG 0 ML IV PRN ×2 (06:16→12:23)
[2017-07-20 06:56] VITALS: BP 110/67; PULSE 48; TEMP 36.8; O2SAT 96
[2017-07-20 07:32] LABS: ALBUMIN 2.9 gm/dl (3.4-5.0); CALCIUM 8.3 mg/dl (8.5-10.1); CREATININE 0.83 mg/dl (0.60-1.20)
[2017-07-20 07:36] LABS: TOTAL PROTEIN 6.2 gm/dl (6.4-8.2)
[2017-07-20] MEDS: NICOTINE 14 MG/24 HR TDSY TD SCH (07:46)
--- NOTE | 2017-07-20 10:56 | Surgery Progress Note ---
Surgery Progress Note Date of Service Jul 20, 2017. Subjective Post OP Day: 1 + feeling well, + ambulating, + pain controlled, + diet, No nausea, No vomiting Objective Vital Signs: Date Time Temp Pulse Resp B/P (MAP) Pulse Ox O2 Delivery O2 Flow Rate FiO2 07/20/17 08:35 Room Air 07/20/17 06:56 36.8 48 19 110/67 (81) 96 Room Air 07/20/17 04:02 37.0 50 14 104/60 (75) 94 Room Air 07/19/17 23:15 Room Air 07/19/17 23:01 36.5 58 18 107/70 (82) 98 Room Air 07/19/17 20:02 76 16 111/62 (78) 95 Room Air 07/19/17 19:47 96 Room Air 07/19/17 18:58 36.5 72 16 112/74 (87) 97 Nasal Cannula 2.0 07/19/17 18:05 36.5 61 16 121/81 (94) 97 Room Air 07/19/17 16:51 36.9 66 16 108/73 (85) 95 Room Air 07/19/17 16:20 36.8 59 16 114/74 (87) 93 Nasal Cannula 2.0 07/19/17 16:00 Oxymask 2.0 07/19/17 15:50 36.5 68 16 113/70 (84) 95 Oxymask 2.0 07/19/17 15:50 95 Oxymask 2.0 07/19/17 15:45 70 20 109/59 95 Oxymask 3 07/19/17 15:30 36.6 74 20 97/60 92 Oxymask 3 07/19/17 15:20 91 20 116/59 92 Oxymask 3 07/19/17 15:10 80 20 119/64 95 Oxymask 5 07/19/17 15:02 36.7 100 17 115/78 98 Oxymask 5 General Appearance: WD/WN, no apparent distress Respiratory/Chest: normal breath sounds, no respiratory distress Abdomen: normal bowel sounds, non tender, soft, + distended (mild) Incision(s): clean, dry (dried blood), intact Laboratory Results: Results Past 24 Hours Test 07/20/17 06:29 Range/Units Sodium Level 138 136-145 mmol/L Potassium Level 4.0 3.5-5.1 mmol/L Chloride Level 109 98-107 mmol/L Carbon Dioxide Level 23 21-32 mmol/L Anion Gap 6.0 3-11 mmol/L Blood Urea Nitrogen 8 7-18 mg/dl Creatinine 0.83 0.60-1.20 mg/dl Est Creatinine Clear Calc Drug Dose 101.8 ml/min Estimated GFR () 112.0 Estimated GFR (Non- 96.6 BUN/Creatinine Ratio 9.4 10-20 Random Glucose 126 70-99 mg/dl Calcium Level 8.3 8.5-10.1 mg/dl Total Bilirubin 0.4 0.2-1 mg/dl Aspartate Amino Transf (AST/SGOT) 51 15-37 U/L Alanine Aminotransferase (ALT/SGPT) 222 12-78 U/L Alkaline Phosphatase 120 45-117 U/L Total Protein 6.2 6.4-8.2 gm/dl Albumin 2.9 3.4-5.0 gm/dl Globulin 3.3 2.5-4.0 gm/dl Albumin/Globulin Ratio 0.9 0.9-2 Assessment & Plan s/p lap ines with IOC. Liver function tests are improving. IOC was negative for stone. Stable for discharge from surgical standpoint.
[2017-07-20] MEDS ORDERED: OXYC-57 PO (10:57)
--- NOTE | 2017-07-20 10:59 | Discharge Instructions ---
Discharge Instructions Date of Service Jul 20, 2017. Admission Reason for Admission: Choledocholithiasis Discharge Discharge Diagnosis / Problem: s/p laparoscopic cholecystectomy Discharge Goals Goal(s): Decrease discomfort Activity Recommendations Activity Limitations: as noted below Lifting Limitations: no more than 25 pounds (under 20 lbs for 2 wks) Exercise/Sports Limitations: until after follow-up appointment (2 wks) May Resume Sexual Activity: after one week Shower/Bathe: tomorrow (OK to shower 24 hrs afer procedure (later today)) Driving or Machine Use: resume 3 days after discharge (if off narcotics) . Current Hospital Diet Patient's current hospital diet: Regular Diet Discharge Diet Recommended Diet: Regular Diet Procedures Procedures Performed: Laparoscopic Cholecystectomy with intraoperative cholangiogram Pending Studies Studies pending at discharge: no Medical Emergencies . Who to Call and When: Medical Emergencies: If at any time you feel your situation is an emergency, please call 911 immediately. . Non-Emergent Contact Non-Emergency issues call your: Surgeon (call [phone] to schedule postop appt for [address] Lauren Salcedo) Call Non-Emergent contact if: you have a fever, your pain is not controlled, your pain is worsening, your pain is unusual for you, wound has increased drainage, wound has increased redness, wound has increased pain, you have any medication questions . "Provider Documentation" section prepared by Lauren Salcedo. . VTE Core Measure Inpt VTE Proph given/why not?: SCD's [place] Drug Monitoring Program Search Results: patient reviewed within database, no issues identified
[2017-07-20 11:31] VITALS: BP 110/67; PULSE 48; TEMP 36.8; O2SAT 96
--- NOTE | 2017-07-20 12:06 | Progress Note ---
Internal Med Progress Note Date of Service: Jul 20, 2017. Provider Documentation: SUBJECTIVE: Patient seen and examined post-op. Patient reports some abdominal pain especially with deep breaths but otherwise generally comfortable in appearance OBJECTIVE: Exam: General- breathing on nasal cannula, no acute distress Eyes- EOMI Neck- no JVD, trachea is midline Lungs- Clear to auscultation anteriorly, no wheezing, on nasal cannula Heart- Regular rate Abdomen- soft, some tenderness of right side, 4 postop dressings over surgical sites of incisions Extremities- no edema ASSESSMENT & PLAN: 07/09/17 MRCP: "There are numerous gallstones within the gallbladder. Gallbladder wall thickening is noted with trace pericholecystic fluid" 07/19/17 Laparoscopic cholecystectomy with intraoperative cholangiogram Based on the OR report "There was no evidence of any common duct stones. There was a dilated common bile duct which was then tapered before entering into the duodenum. There was passage of contrast into the duodenum." However the radiologist reading the round filling defect seen within the mid common bile duct suggestive of a stone Disposition/Plan Patient is cleared by general surgery for discharge for Choledocholithiasis Blood cultures from 07/18/17 and 07/09/17 are negative, Zosyn stopped Discharge Instructions Activity Recommendations Activity Limitations: as noted below Lifting Limitations: no more than 25 pounds (under 20 lbs for 2 wks) Exercise/Sports Limitations: until after follow-up appointment (2 wks) May Resume Sexual Activity: after one week Shower/Bathe: tomorrow (OK to shower 24 hrs afer procedure (later today)) Driving or Machine Use: resume 3 days after discharge (if off narcotics) Discharge Diet Recommended Diet: Regular Diet Medical Emergencies: If at any time you feel your situation is an emergency, please call 911 immediately. Non-Emergent Contact Non-Emergency issues call your: Surgeon (call [phone] to schedule postop appt for [address] Lauren Salcedo) Call Non-Emergent contact if: you have a fever, your pain is not controlled, your pain is worsening, your pain is unusual for you, wound has increased drainage, wound has increased redness, wound has increased pain, you have any medication questions Primary Care doctor Follow up appointment Follow up appointments 07/25/17 2:[address] Olvin Morrow [address] [place] [address] Vital Signs: Date Time Temp Pulse Resp B/P (MAP) Pulse Ox O2 Delivery O2 Flow Rate FiO2 07/20/17 11:31 36.8 48 19 96 Room Air 07/20/17 08:35 Room Air 07/20/17 06:56 36.8 48 19 110/67 (81) 96 Room Air 07/20/17 04:02 37.0 50 14 104/60 (75) 94 Room Air 07/19/17 23:15 Room Air 07/19/17 23:01 36.5 58 18 107/70 (82) 98 Room Air 07/19/17 20:02 76 16 111/62 (78) 95 Room Air 07/19/17 19:47 96 Room Air 07/19/17 18:58 36.5 72 16 112/74 (87) 97 Nasal Cannula 2.0 07/19/17 18:05 36.5 61 16 121/81 (94) 97 Room Air 07/19/17 16:51 36.9 66 16 108/73 (85) 95 Room Air 07/19/17 16:20 36.8 59 16 114/74 (87) 93 Nasal Cannula 2.0 07/19/17 16:00 Oxymask 2.0 07/19/17 15:50 36.5 68 16 113/70 (84) 95 Oxymask 2.0 07/19/17 15:50 95 Oxymask 2.0 07/19/17 15:45 70 20 109/59 95 Oxymask 3 07/19/17 15:30 36.6 74 20 97/60 92 Oxymask 3 07/19/17 15:20 91 20 116/59 92 Oxymask 3 07/19/17 15:10 80 20 119/64 95 Oxymask 5 07/19/17 15:02 36.7 100 17 115/78 98 Oxymask 5 Lab Results: Results Past 24 Hours Test 07/20/17 06:29 Range/Units Sodium Level 138 136-145 mmol/L Potassium Level 4.0 3.5-5.1 mmol/L Chloride Level 109 98-107 mmol/L Carbon Dioxide Level 23 21-32 mmol/L Anion Gap 6.0 3-11 mmol/L Blood Urea Nitrogen 8 7-18 mg/dl Creatinine 0.83 0.60-1.20 mg/dl Est Creatinine Clear Calc Drug Dose 101.8 ml/min Estimated GFR () 112.0 Estimated GFR (Non- 96.6 BUN/Creatinine Ratio 9.4 10-20 Random Glucose 126 70-99 mg/dl Calcium Level 8.3 8.5-10.1 mg/dl Total Bilirubin 0.4 0.2-1 mg/dl Aspartate Amino Transf (AST/SGOT) 51 15-37 U/L Alanine Aminotransferase (ALT/SGPT) 222 12-78 U/L Alkaline Phosphatase 120 45-117 U/L Total Protein 6.2 6.4-8.2 gm/dl Albumin 2.9 3.4-5.0 gm/dl Globulin 3.3 2.5-4.0 gm/dl Albumin/Globulin Ratio 0.9 0.9-2
--- NOTE | 2017-07-20 12:12 | Discharge Summary ---
Discharge Summary Date of Service Jul 20, 2017. Discharge Summary Admission Date: Jul 18, 2017 at 22:25 Discharge Date: Jul 20, 2017 Discharge Disposition: Home Principal Diagnosis: Choledocholithiasis Medication Reconciliation New Medications: Oxycodone/Acetaminophen 5MG/325MG (Percocet 5MG/325MG) Tab 1-2 TAB PO Q4H PRN for moderate pain (pain scale 4-6), #30 TAB PAIN Continued Medications: Metoclopramide Hcl (Reglan) 5 Mg Tab 5 MG PO BID PRN for GI Upset, TAB Pediatric Multiple Vitamins W/ (Flintstones Plus Iron) 1 Chw Chw 1 TAB PO DAILY Discontinued Medications: Acetaminophen (Tylenol) 500 Mg Tab 1000 MG PO Q6 PRN for Headache or Pain, TAB Admission Information HPI (per Admitting provider): HISTORY OF PRESENT ILLNESS: The patient is a very pleasant 26-year-old female with a history of GERD, gastroparesis and smoking presenting with abdominal pain starting 1 day prior to admission. The patient was apparently doing well until the evening prior to admission when while watching TV, she started to have abdominal pain from the right upper quadrant spreading to the upper quadrant epigastric area and also to back. The patient states that the pain has persisted through the day and resulting to poor oral intake. This evening, the patient got worse and the patient presented to the ER. At the ER, the patient was afebrile, heart rate of 91, blood pressure 110/71. CAT scan of abdomen and pelvis showed no signs of kidney stones, but the gallbladder ultrasound did show cholelithiasis with extrahepatic biliary ductal dilatation suggesting possible choledocholithiasis. Also, her labs revealed elevated bilirubin a total 2.7, direct of 1.4, AST/ALT elevated, alkaline phosphatase elevated. The patient is referred to the hospitalist for admission. Physical Exam (per Admitting): On exam, the patient is seen sitting up in bed resting. States that her abdominal pain is now 4/10 after Toradol from the ER. Also, nausea is improved with Zofran. She has also been started with Zosyn. She states that the pain is still 4/10, but denies having any chest pain, shortness of breath, palpitations or dizziness. No other symptoms noted. No urinary symptoms. REVIEW OF SYSTEMS: Ten systems reviewed and negative except for the ones mentioned above. PAST MEDICAL HISTORY: GERD, gastroparesis and smoker. PAST SURGICAL HISTORY: Vaginal delivery, dental surgery, D&C, EGD in 2010 negative for celiac disease, no esophageal damage. Nasal surgery. PERSONAL AND SOCIAL HISTORY: The patient is single. Current everyday smoker. Denies alcohol use. Denies drug use. FAMILY HISTORY: Father alcoholism. Mother hypertension. PHYSICAL EXAMINATION: VITAL SIGNS: Blood pressure 107/66, pulse rate of 67, respiratory rate of 16, temperature 36.5, saturating 98% on room air. GENERAL: The patient is awake, alert, oriented x3, not in distress, speaks in sentences. No accessory muscle use. HEAD AND NECK: Normocephalic head. Normal pupils. Full EOMs. No icterus. [place] conjunctivae. ENT: Grossly normal. NECK: No JVD, no lymphadenopathy or thyromegaly. HEART: Normal rate. Regular rhythm. S1, S2. No murmurs. LUNGS: Clear breath sounds bilaterally. No rales or wheezes. ABDOMEN: Nondistended. Soft. Normal bowel sounds. Positive tenderness in the upper quadrants and epigastric region. EXTREMITIES: Legs no edema, no rashes noted. NEUROLOGIC: No focal motor or sensory deficits. Hospital Course 07/09/17 MRCP: "There are numerous gallstones within the gallbladder. Gallbladder wall thickening is noted with trace pericholecystic fluid" 07/19/17 Laparoscopic cholecystectomy with intraoperative cholangiogram Based on the OR report "There was no evidence of any common duct stones. There was a dilated common bile duct which was then tapered before entering into the duodenum. There was passage of contrast into the duodenum." However the radiologist reading the round filling defect seen within the mid common bile duct suggestive of a stone Disposition/Plan Patient is cleared by general surgery for discharge for Choledocholithiasis Blood cultures from 07/18/17 and 07/09/17 are negative, Zosyn stopped Discharge Instructions Activity Recommendations Activity Limitations: as noted below Lifting Limitations: no more than 25 pounds (under 20 lbs for 2 wks) Exercise/Sports Limitations: until after follow-up appointment (2 wks) May Resume Sexual Activity: after one week Shower/Bathe: tomorrow (OK to shower 24 hrs afer procedure (later today)) Driving or Machine Use: resume 3 days after discharge (if off narcotics) Discharge Diet Recommended Diet: Regular Diet Medical Emergencies: If at any time you feel your situation is an emergency, please call 911 immediately. Non-Emergent Contact Non-Emergency issues call your: Surgeon (call [phone] to schedule postop appt for [address] Lauren Salcedo) Call Non-Emergent contact if: you have a fever, your pain is not controlled, your pain is worsening, your pain is unusual for you, wound has increased drainage, wound has increased redness, wound has increased pain, you have any medication questions Primary Care doctor Follow up appointment Follow up appointments 07/25/17 2:[address] Olvin Morrow [address], [place] [address] Total time spent on discharge = 60 minutes This includes examination of the patient, discharge planning, medication reconciliation, and communication with other providers. Discharge Instructions see above
== END 2017-07-20 13:45 | disposition home or self-care (01) ==
LOC: C.EDB 19:01 → C.MSN 22:25 → CANRESERV 22:48 → ENRESERV 22:48
PROVIDERS: ADMIT Internal Medicine; ATTEND Hospitalist
DX: K80.50 Calculus of bile duct without cholangitis or cholecystitis without obstruction (principal); R74.8 Abnormal levels of other serum enzymes; E80.6 Other disorders of bilirubin metabolism; Z87.442 Personal history of urinary calculi; Z87.440 Personal history of urinary (tract) infections; F17.210 Nicotine dependence, cigarettes, uncomplicated; K21.9 Gastro-esophageal reflux disease without esophagitis; F90.9 Attention-deficit hyperactivity disorder, unspecified type; E66.9 Obesity, unspecified; R79.89 Other specified abnormal findings of blood chemistry

== ENCOUNTER 2017-10-06 18:21 | Emergency (ER) | payer OTHER ==
[~2017-10-06] VITALS: Ht 157.5 cm; Wt 85.3 kg
[~2017-10-06 18:21] MED LIST changes: +METO1TAB54 PO; -MTR600X PO; -NITR-5 PO; +OXYC-57 PO; -VALA500T60 PO
[2017-10-06 18:27] VITALS: TEMP 36.9; Ht 157.5 cm; Wt 85.3 kg
[2017-10-06] MEDS ORDERED: PROPARACAINE HCL 0.5% OP SOLN 15 ML BTL OP STA (18:38)
--- NOTE | 2017-10-06 19:38 | EMERGENCY ROOM VISIT NOTE ---
ED Visit Note First contact with patient: 18:38 CHIEF COMPLAINT: Eye pain HISTORY OF PRESENT ILLNESS: This 26-year-old female patient presents to the emergency department complaining of pain in the left eye due to an accident that occurred prior to arrival. The patient was changing the fuel in her furnace when a burst of air came out and she felt like she got something in the left eye. She copiously irrigated the eye herself.. There has been a constant moderate pain and irritation, redness and tearing in the eye. There is a mild blurring of vision at times and light bothers the eye. The patient does not wear contacts. The patient rates the pain as 5/10. The patient has not had previous injuries to this eye. Tetanus shot is up to date. REVIEW OF SYSTEMS: A 6 system review of systems was completed with positives and pertinent negatives listed in the HPI. ALLERGIES: No known drug allergies MEDICATIONS: Reviewed PMH: Gastroparesis, asthma SOCIAL HISTORY: Smokes half pack of cigarettes a day. Denies alcohol use PHYSICAL EXAM: Vital Signs: Reviewed Nurse's notes, vital signs stable. Visual acuity as noted. GENERAL: This is a 26-year-old female, in no acute distress, but who is uncomfortable from the eye problem. Well-developed well-nourished. EYES: The pupils are equal round and reactive to light and accommodation. EOMs are full and without tenderness. There is discharge of clear tears from the left eye which is injected. There is no foreign body visible under the eyelid even after lid eversion. No foreign body was seen embedded in the cornea under slit lamp exam. The cornea was clear and no hyphema was seen. Fluorescein uptake was observed consistent with 1 mm, punctate, superficial corneal defects at approximately 12:00 and 5:00. Additional visualization under regular light reveals no abnormalities. The patient tolerated the procedure well. EMERGENCY DEPARTMENT COURSE: I examined the patient. Alcaine 2 drops were placed in the patient's left eye. A slit lamp exam was performed as above. Ciloxan two drops was placed in the patient's left eye. The patient was discharged home in good condition. DIAGNOSIS: Corneal abrasion of the left eye DISCHARGE INSTRUCTIONS AND TREATMENT: Use Ciloxin two drops in left eye every two hours while awake for two days; then two drops every four hours while awake for three days. Use Ibuprofen 600 mg or Tylenol 1000 mg every 6 hrs as needed for moderate pain. Use Vicodin 1 tablet every four to six hours when pain breaks through the Ibuprofen or Tylenol. Return to the ED or see your eye doctor in 24-48 hours for a recheck. Return to the ED for increasing pain or changes in vision. This chart was completed in part utilizing [employer] Speech Voice Recognition software. Attempts were made to minimize the grammatical errors, random word insertions, pronoun errors and incomplete sentences. Any formal questions or concerns about the content, text or information contained within the body of this dictation should be directly addressed to the provider for clarification.
[2017-10-06] MEDS ORDERED: CIPROFLOXACIN HCL 0.3% OP SOLN 2.5 ML BTL OP ONE (19:45)
[2017-10-06 19:59] VITALS: BP 115/96; PULSE 88; O2SAT 97
== END 2017-10-06 20:00 | disposition home or self-care (01) ==
LOC: C.EDB 18:22 → C.EDD 20:00
DX: S05.01XA Injury of conjunctiva and corneal abrasion without foreign body, right eye, initial encounter (principal); X14.1XXA Other contact with hot air and other hot gases, initial encounter; H53.8 Other visual disturbances; J45.909 Unspecified asthma, uncomplicated; F17.200 Nicotine dependence, unspecified, uncomplicated

== ENCOUNTER 2017-10-11 19:38 | Emergency (ER) | payer OTHER ==
[~2017-10-11] VITALS: Ht 160 cm; Wt 85.7 kg
[2017-10-11 19:43] VITALS: TEMP 36.7; Ht 160 cm; Wt 85.7 kg
[2017-10-11] MEDS ORDERED: ONDANSETRON INJ 2 MG/ML 2 ML VIAL IV STA (20:18)
[2017-10-11] MEDS ORDERED: SODIUM CHLORIDE 0.9% 1000ML 1,000 ML IV STA (20:18)
[2017-10-11] MEDS ORDERED: ACETAMINOPHEN IV 100 ML IV ONE (20:30)
[2017-10-11] MEDS ORDERED: OPTIRAY 320 IV PRN (20:30)
[2017-10-11] MEDS ORDERED: METO1TAB54 PO (20:32)
[2017-10-11 20:54] LABS: BASO % 0.4 %; BASO ABS # 0.05 K/uL (0-0.2); EOS % 1.7 %; EOS ABS # 0.21 K/uL (0-0.5); HEMATOCRIT 41.2 % (37-47); HEMOGLOBIN 14.9 g/dL (12.0-16.0); IG# 0.13 K/uL (0.00-0.02); LYMPH % 35.5 %; LYMPH ABS # 4.49 K/uL (1.2-3.4); MEAN CORPUSCULAR HEMOGLOBIN 31.8 pg (25-34); MEAN CORPUSCULAR HGB CONC 36.2 g/dl (32-36); MEAN PLATELET VOLUME 8.6 fL (7.4-10.4); MONO ABS # 0.88 K/uL (0.11-0.59); NEUT % 54.4 %; PLATELET COUNT 272 K/uL (130-400); RED CELL DISTRIBUTION WIDTH CV 12.5 % (11.5-14.5); RED CELL DISTRIBUTION WIDTH SD 39.6 fL (36.4-46.3); WHITE BLOOD COUNT 12.66 K/uL (4.8-10.8)
[2017-10-11 21:06] LABS: PTT PATIENT 31.7 SECONDS (21.0-31.0)
[2017-10-11 21:11] LABS: ALBUMIN 3.9 gm/dl (3.4-5.0); ALT/SGPT 19 U/L (12-78); BLOOD UREA NITROGEN 16 mg/dl (7-18); CALCIUM 9.3 mg/dl (8.5-10.1); CARBON DIOXIDE 24 mmol/L (21-32); CREATININE 0.68 mg/dl (0.60-1.20); GLUCOSE 81 mg/dl (70-99); LIPASE 198 U/L (73-393); SODIUM 137 mmol/L (136-145)
[2017-10-11 21:14] LABS: ALKALINE PHOSPHATASE 72 U/L (45-117); AST/SGOT 16 U/L (15-37); TOTAL PROTEIN 7.6 gm/dl (6.4-8.2)
[2017-10-11] MEDS ORDERED: MULT-513 PO (21:14)
--- NOTE | 2017-10-11 21:46 | DIAGNOSTIC IMAGING REPORT ---
ABD/PELVIS IV CONTRAST ONLY CLINICAL HISTORY: 27 years-old Female presenting with RUQ abd pain; cholecystectomy late June. TECHNIQUE: Multidetector CT of the abdomen and pelvis was performed after the administration of intravenous contrast. IV contrast: 92 mL of Optiray 320. A dose lowering technique was used consistent with the principles of ALARA (as low as reasonably achievable). COMPARISON: 07/18/2017. CT DOSE (mGy.cm): The estimated cumulative dose is 464.05 mGy.cm. FINDINGS: Assistant To The [employer] topogram: Unremarkable. Lung bases: Mosaic attenuation at the lung bases suggest small airways disease, similar prior. Normal heart size. No pericardial or pleural effusion. Liver: Normal morphology. No liver lesion. Patent hepatic vasculature. Biliary: No intrahepatic or extrahepatic biliary ductal dilatation. Gallbladder surgically absent. Pancreas: Normal. Spleen: Normal. Adrenal glands: Normal. Kidneys and ureters: Normal. No hydronephrosis. Bladder: Normal. Pelvic organs: Uterus and ovaries normal. Bowel: Normal appendix. No bowel obstruction. Peritoneal cavity: No free fluid or intraperitoneal gas. Lymph nodes: No enlarged lymph nodes in the abdomen or pelvis. Vasculature: Aorta and IVC patent and normal in caliber. Abdominal wall: Normal. Musculoskeletal: Normal. IMPRESSION: 1. No acute intra-abdominal pathology. 2. Postsurgical changes of cholecystectomy. 3. Mosaic attenuation at the lung bases suggests small airways disease. Electronically signed by: Eyad Benitez M.D. 10/11/2017 9:45 PM Dictated Date/Time: 10/11/2017 9:40 PM
[2017-10-11 22:21] VITALS: BP 106/43; PULSE 73; O2SAT 97
--- NOTE | 2017-10-12 01:04 | EMERGENCY ROOM VISIT NOTE ---
ED Visit Note First contact with patient: 19:48 Chief Complaint: Abdominal pain. History of Present Illness: Ms. Interiano is a 27 year-old white female who ambulates into the ED complaining of right upper quadrant abdominal pain. Historically patient reports status post cholecystectomy from late June 2017 , normal vaginal delivery, D&C for retention of placenta. Patient reports she has been having ongoing tiredness and fatigue since she had her cholecystectomy. She reports over the past 2 months she has been having a sharp stabbing pain in the area of her midaxillary incision site from her cholecystectomy. She reports the pain is constant. She rates her discomfort 7/ 10. Intermittently she feels like her pain radiates down into the right lower back; like someone threw a spirit me. Her intermittent radiation pain typically occurs with movements at the waist in the upper extremities. She has not identified any alleviating factors related to the pain. She has not taken any medications for pain prior to arrival at the hospital. Associated with her pain she reports she has been nauseated but has not vomited, she intermittently gets chills and diaphoresis, today she reported she had a bowel movement that was mushy; like applesauce, and there was bright red blood in the toilet tissue and in the toilet bowl, fatigue and intermittent dizziness. Additionally she reports she has not had a menstrual cycle since the of her child in February 2017; she has been seen by her LAPPER. She denies clair fevers, headaches, upper respiratory tract symptoms, chest pain , shortness of breath, palpitations, orthopnea, dependent edema, previous clots , claudication, cramping, hematemesis, decreased appetite, urinary symptoms, hematuria, vaginal bleeding/discharge, painful intercourse. Review of Systems: As noted above in history of present illness. All body systems were reviewed and found to be negative as noted above. Past Medical History: As previously noted, gastroparesis, unspecified skin disorder, bronchitis, pneumonia, unspecified urinary problems and kidney stones. Current Medications: Reglan, multivitamins. Allergies to Medications: Latex, metoclopramide. Social History: Patient is not employed; she feels safe in her home environment ; she admits to tobacco use and denies alcohol use. Physical Examination: Vital Signs: Date Time Temp Pulse Resp B/P (MAP) Pulse Ox O2 Delivery O2 Flow Rate FiO2 10/11/17 22:21 73 20 106/43 97 10/11/17 21:29 76 20 117/59 96 Room Air 10/11/17 19:43 36.7 91 18 122/83 96 Room Air GENERAL: 26-year-old female in mild distress due to pain, nontoxic-appearing, afebrile and hemodynamically stable. NEUROLOGICAL: Awake, alert and oriented to person, place and time. Answering questions appropriately and following commands. Normal gait. Good hand eye coordination. SKIN: Warm, dry and pink. No soft tissue eruptions or trauma noted. HEENT: Atraumatic and normocephalic. PERRL. Sclera white and conjunctiva pink. Oral cavity moist and pink. Pharynx is nonerythematous or edematous. Speech normal. No lymphadenopathy. Trachea midline. No jugular venous distention. BACK: No tenderness over the bony thoracic and lumbar spine. Mild tenderness in the L4-L5 area in the right paraspinous musculature without spasm. No CVA tenderness. THORAX: Lungs sounds are clear to auscultation and equal bilaterally with symmetrical chest wall. No wheezing, rales or rhonchi. No crepitus, tenderness , subcutaneous air or deformities noted. HEART: Regular rate and rhythm. No gallops, rubs or murmurs are appreciated. ABDOMEN: Obese, soft with moderate tenderness over her surgical incision from her cholecystectomy. There is no signs of infection around this area. She does have some mild guarding but no clair rigidity. Decreased bowel sounds in all quadrants. EXTREMITIES: Moves all extremities well on command and with purpose. All distal neurovascular statuses are intact and equal bilaterally. ED Course: Patient is assessed as noted above. Laboratory Testing: Test 10/11/17 20:25 10/11/17 20:30 Range/Units Urine Color YELLOW Urine Appearance CLEAR CLEAR Urine pH 5.0 4.5-7.5 Urine Specific [place] 1.011 1.000-1.030 Urine Protein NEG NEG Urine Glucose (UA) NEG NEG Urine Ketones NEG NEG Urine Occult Blood NEG NEG Urine Nitrite NEG NEG Urine Bilirubin NEG NEG Urine Urobilinogen NEG NEG Urine Leukocyte Esterase NEG NEG Urine Test NEG NEG White Blood Count 12.66 4.8-10.8 K/uL Red Blood Count 4.68 4.2-5.4 M/uL Hemoglobin 14.9 12.0-16.0 g/dL Hematocrit 41.2 37-47 % Mean Corpuscular Volume 88.0 80-100 fL Mean Corpuscular Hemoglobin 31.8 25-34 pg Mean Corpuscular Hemoglobin Concent 36.2 32-36 g/dl Platelet Count 272 130-400 K/uL Mean Platelet Volume 8.6 7.4-10.4 fL Neutrophils (%) (Auto) 54.4 % Lymphocytes (%) (Auto) 35.5 % Monocytes (%) (Auto) 7.0 % Eosinophils (%) (Auto) 1.7 % Basophils (%) (Auto) 0.4 % Neutrophils # (Auto) 6.90 1.4-6.5 K/uL Lymphocytes # (Auto) 4.49 1.2-3.4 K/uL Monocytes # (Auto) 0.88 0.11-0.59 K/uL Eosinophils # (Auto) 0.21 0-0.5 K/uL Basophils # (Auto) 0.05 0-0.2 K/uL RDW Standard Deviation 39.6 36.4-46.3 fL RDW Coefficient of Variation 12.5 11.5-14.5 % Immature Granulocyte % (Auto) 1.0 % Immature Granulocyte # (Auto) 0.13 0.00-0.02 K/uL Prothrombin Time 10.0 9.0-12.0 SECONDS Prothromb Time International Ratio 1.0 0.9-1.1 Activated Partial Thromboplast Time 31.7 21.0-31.0 SECONDS Partial Thromboplastin Ratio 1.2 Sodium Level 137 136-145 mmol/L Potassium Level 4.0 3.5-5.1 mmol/L Chloride Level 107 98-107 mmol/L Carbon Dioxide Level 24 21-32 mmol/L Anion Gap 6.0 3-11 mmol/L Blood Urea Nitrogen 16 7-18 mg/dl Creatinine 0.68 0.60-1.20 mg/dl Est Creatinine Clear Calc Drug Dose 127.8 ml/min Estimated GFR () 138.0 Estimated GFR (Non- 119.0 BUN/Creatinine Ratio 23.5 10-20 Random Glucose 81 70-99 mg/dl Calcium Level 9.3 8.5-10.1 mg/dl Total Bilirubin 0.4 0.2-1 mg/dl Direct Bilirubin < 0.1 0-0.2 mg/dl Aspartate Amino Transf (AST/SGOT) 16 15-37 U/L Alanine Aminotransferase (ALT/SGPT) 19 12-78 U/L Alkaline Phosphatase 72 45-117 U/L Total Protein 7.6 6.4-8.2 gm/dl Albumin 3.9 3.4-5.0 gm/dl Lipase 198 73-393 U/L Contrast Abdominal/Pelvic CT: Was reviewed by myself and read by the radiologist showing no acute intra-abdominal pathology, postsurgical changes from cholecystectomy and mosaic attenuation at the lung bases suggestive of small airway disease. Patient was hydrated with normal saline and received 1 g of Tylenol IV and 4 mg of Zofran. Patient was reassessed multiple times during her stay in the emergency department. Patient's case was reviewed with Dr. Amaya; we agreed on diagnostic approach, treatment, disposition and plan. Patient was educated about today's findings and instructed on her treatment plan ; she verbalizes understanding and agreement with this plan. Clinical Impression: Right upper quadrant abdominal pain. Incisional pain. Decision-Making: Initially my differential diagnosis I considered retained gallstone, postsurgical abscess, hepatitis, pancreatitis and other causes. Disposition: Patient discharged home in stable condition; prior to departure she was reassessed and subjectively reported she was feeling better and rated her discomfort 3/10. Plan: Patient was encouraged to use ibuprofen or acetaminophen every 6 hours as needed for pain or alternate every 3 hours for continuous pain. Patient was encouraged to use a bland diet for the next 48 hours and increased clear fluids. Patient was encouraged to contact her cholecystectomy surgeon on Saturday and inform them of today's ED visit and request follow-up care and treatment. Patient was encouraged to return the ED for worsening/uncontrolled pain, uncontrolled nausea/vomiting, fevers or any new/concerning symptoms.
== END 2017-10-11 22:23 | disposition home or self-care (01) ==
LOC: C.EDB 19:39 → C.EDC 22:23
DX: R10.11 Right upper quadrant pain (principal)